=== PATIENT | female | born 1930 | race Caucasian/White ===

== ENCOUNTER 2016-10-09 22:52 | Inpatient (IN) | payer MEDICARE, OTHER ==
[~2016-10-09] VITALS: Ht 154.9 cm; Wt 105.8 kg
[~2016-10-09 22:52] MED LIST: CITA40TA4 PO; LORA-373 PO; METO25TA6 PO; OMEP20TA PO; TRAM50TA PO; ZOFR4TAB3 SL
[2016-10-09 23:04] VITALS: BP 190/82; PULSE 89; RESP 18; TEMP 100.3; O2SAT 92
[2016-10-09] MEDS ORDERED: methylPREDNISolone SOD SUCC 125 MG/2 ML VIAL IVP ONE (23:30)
[2016-10-09] MEDS ORDERED: hydrALAZINE HCL 20 MG/ML VIAL IV PUSH ONE (23:30)
[2016-10-09] MEDS ORDERED: ACETAMINOPHEN 500 MG CPLT PO ONE (23:30)
--- NOTE | 2016-10-09 23:32 | PD ---
HPI Chief Complaint: General Weakness Time Seen by Provider: 23:09 Travel History International Travel<30 days: No Contact w/Intl Traveler<30days: No Traveled to known affect area: No History of Present Illness HPI 86yo F with PMH of lung CA s/p right upper lobe resection, HTN, depression, anxiety presents to the ED with c/o generalized weakness, cough, throat pain, nasal congestion for 2 days. States she felt so weak today that she could not get up to go to the bathroom. Normally able to walk with a cane. +Tactile fever. +Wheezing. +NBNB vomiting. Denies any chest pain, sob, abdominal pain , urinary complaints. PFSH Past Medical History Arthritis: Yes Atrial Fibrillation: Yes Blood Disorders: No Anxiety: Yes Depression: Yes Heart Rhythm Problems: No Cancer: Yes (LUNG CANCER ) Cardiac Catheterization: Yes (ANGIOPLASTY) Cardiovascular Problems: Yes High Cholesterol: No Chemotherapy: No Chest Pain: No Congestive Heart Failure: No Coronary Artery Disease: Yes Diabetes: No Diminished Hearing: No Endocrine: No Gastrointestinal Disorders: No GERD: Yes Glaucoma: No Genitourinary: No Hepatitis: No Hiatal Hernia: Yes Hypertension: Yes Immune Disorder: No Implanted Vascular Access Dvce: No Medical other: No Musculoskeletal: Yes Neurologic: Yes Psychiatric: Yes Reproductive: No Respiratory: Yes Radiation Therapy: No Thyroid Disease: No Tetanus Vaccination: < 5 Years Influenza Vaccination: Yes Menopausal: Yes Past Surgical History Abdominal Surgery: Yes (CHOLECYSTECTOMY) Cardiac Surgery: No Cholecystectomy: Yes Ear Surgery: No Endocrine Surgery: No Eye Surgery: Yes (BILATERAL CATARACT) Genitourinary Surgery: No Gynecologic Surgery: Yes (HYSTERECTOMY) Hysterectomy: Yes Neurologic Surgery: Yes (LUMBAR LAMI) Oral Surgery: Yes (T&A, LOWER IMPLANTED TEETH) Pacemaker: No Thoracic Surgery: Yes (2 LOBES OF R LUNG REMOVED FROM LUNG CANCER) Tonsillectomy: Yes Other Surgery: Yes (RT LUNG BIOPSY AND RESECTION) Social History Alcohol Use: No Tobacco Use: No Substance Use: No Allergies-Medications (Allergen,Severity, Reaction): Coded Allergies: Meperidine (Verified Adverse Reaction, Severe, NAUSEA/VOMITING, 10/09/16) Pentazocine (Verified Adverse Reaction, Severe, NAUSEA/VOMITING, 10/09/16) Scopolamine (Verified Adverse Reaction, Severe, NAUSEA/VOMITING, 10/09/16) Sulfa (Verified Adverse Reaction, Severe, NAUSEA/VOMITING, 10/09/16) Trimethoprim (Verified Adverse Reaction, Severe, NAUSEA/VOMITING, 10/09/16) Talwin (Verified Adverse Reaction, Mild, NAUSEA/VOMITING, 10/09/16) Uncoded Allergies: NARCOTICS WITHOUT PHENERGAN (Adverse Reaction, Severe, NAUSEA/VOMITING, 18/04) Reported Meds & Prescriptions Reported Meds & Active Scripts Active Zofran Odt (Ondansetron Odt) 4 Mg Tab 4 Mg SL Q6HR PRN Reported Lorazepam 0.5 Mg Tab 0.5 Mg PO Q8H PRN Omeprazole 20 Mg Tab 20 Mg PO DAILY Metoprolol Succinate ER 24 HR (Metoprolol Succinate) 25 Mg Tab 25 Mg PO BID Citalopram (Citalopram Hydrobromide) 40 Mg Tab 40 Mg PO DAILY Tramadol (Tramadol HCl) 50 Mg Tab 50 Mg PO Q8H PRN Review of Systems Except as stated in HPI: all other systems reviewed are Neg Physical Exam Narrative GENERAL: 86yo F not in distress. SKIN: Warm and dry. HEAD: Atraumatic. Normocephalic. EYES: Pupils equal and round at 3mm bilaterally. No scleral icterus. No injection or drainage. ENT: No nasal bleeding or discharge. Mucous membranes pink and moist. NECK: Trachea midline. No JVD. CARDIOVASCULAR: Regular rate and rhythm. No murmur appreciated. RESPIRATORY: No accessory muscle use. Expiratory wheezing on exam bilaterally. GASTROINTESTINAL: Abdomen soft, non-tender, nondistended. No rebound tenderness or guarding. MUSCULOSKELETAL: No obvious deformities. No clubbing. No cyanosis. No edema. NEUROLOGICAL: Awake and alert. No obvious cranial nerve deficits. Motor grossly within normal limits. Normal speech. Data Data Last Documented VS Vital Signs Date Time Temp Pulse Resp B/P Pulse Ox O2 Delivery O2 Flow Rate FiO2 10/10/16 02:00 94 18 121/58 90 Room Air 10/09/16 23:52 2 10/09/16 23:04 100.3 Orders Electrocardiogram (10/09/16 ) Complete Blood Count With Diff (10/09/16 23:24) Basic Metabolic Panel (Bmp) (10/09/16 23:24) Lactic Acid Sepsis Protocol (10/09/16 23:24) Urinalysis - C+S If Indicated (10/09/16 23:24) Blood Culture (10/09/16 23:24) B-Type Natriuretic Peptide (10/09/16 23:24) Ckmb (Isoenzyme) Profile (10/09/16 23:24) Troponin I (10/09/16 23:24) Chest, Single Ap (10/09/16 23:24) Methylprednisolone So Succ Inj (Solumedr (10/09/16 23:30) Albuterol-Ipratropium Neb (Duoneb Neb) (10/09/16 23:30) Influenzae A/B Antigen (10/09/16 23:24) Acetaminophen (Tylenol) (10/09/16 23:30) Hydralazine Inj (Apresoline Inj) (10/09/16 23:30) Arterial Blood Gas (Abg) (10/09/16 ) Urine Culture (10/10/16 01:00) D-Dimer (10/10/16 01:49) Albuterol-Ipratropium Neb (Duoneb Neb) (10/10/16 02:00) Ceftriaxone Inj (Rocephin Inj) (10/10/16 02:00) Admit To Inpatient (10/10/16 ) Vital Signs (Adult) Q4H (10/10/16 02:10) Activity Oob With Assistance (10/10/16 02:10) [employer] / Telemetry .CONTINUOUS (10/10/16 02:10) Diet Heart Healthy (10/10/16 Breakfast) Sodium Chlor 0.9% 1000 Ml Inj (Ns 1000 M (10/10/16 02:10) Acetaminophen (Tylenol) (10/10/16 02:15) Ondansetron Inj (Zofran Inj) (10/10/16 02:15) Magnesium Hydroxide Liq (Milk Of Magnesi (10/10/16 02:15) Basic Metabolic Panel (Bmp) (10/10/16 06:00) Complete Blood Count With Diff (10/10/16 06:00) Resp Oxygen Efrain C Titrat 1-4 L (10/10/16 ) Pt Request For Service (10/10/16 02:10) Heparin Inj (Heparin Inj) (10/10/16 09:00) Scd Bilateral/Knee High SANGEETA.BID (10/10/16 02:10) Damon Bilateral/Knee High SANGEETA.QSHIFT (10/10/16 02:10) Naloxone Inj (Narcan Inj) (10/10/16 02:15) Inpatient Certification (10/10/16 ) Albuterol-Ipratropium Neb (Duoneb Neb) (10/10/16 08:00) Albuterol Neb (Albuterol Neb) (10/10/16 02:15) Ceftriaxone Inj (Rocephin Inj) (10/11/16 02:00) Admit Order (Ed Use Only) (10/10/16 ) ^ Saline Lock (10/10/16 02:14) Resp Oxygen Efrain C Titrat 1-4 L (10/10/16 ) ^ Notify Dr: Other (10/10/16 02:14) Sodium Chloride 0.9% Flush (Ns Flush) (10/10/16 09:00) Sodium Chloride 0.9% Flush (Ns Flush) (10/10/16 02:15) Labs Laboratory Tests Test 10/09/16 10/10/16 10/10/16 10/10/16 23:30 00:00 01:00 01:18 White Blood Count 10.1 TH/MM3 Red Blood Count 4.59 MIL/MM3 Hemoglobin 13.3 GM/DL Hematocrit 39.6 % Mean Corpuscular Volume 86.3 FL Mean Corpuscular Hemoglobin 28.9 PG Mean Corpuscular Hemoglobin 33.4 % Concent Red Cell Distribution Width 14.4 % Platelet Count 208 TH/MM3 Mean Platelet Volume 8.6 FL Neutrophils (%) (Auto) 87.0 % Lymphocytes (%) (Auto) 4.1 % Monocytes (%) (Auto) 7.7 % Eosinophils (%) (Auto) 0.1 % Basophils (%) (Auto) 1.1 % Neutrophils # (Auto) 8.8 TH/MM3 Lymphocytes # (Auto) 0.4 TH/MM3 Monocytes # (Auto) 0.8 TH/MM3 Eosinophils # (Auto) 0.0 TH/MM3 Basophils # (Auto) 0.1 TH/MM3 CBC Comment DIFF FINAL Differential Comment Sodium Level 139 MEQ/L Potassium Level 4.3 MEQ/L Chloride Level 105 MEQ/L Carbon Dioxide Level 25.2 MEQ/L Anion Gap 9 MEQ/L Blood Urea Nitrogen 19 MG/DL Creatinine 1.40 MG/DL Estimat Glomerular Filtration 36 ML/MIN Rate Random Glucose 152 MG/DL Lactic Acid Level 1.4 mmol/L Calcium Level 8.2 MG/DL Total Creatine Kinase 31 U/L Troponin I LESS THAN 0.02 NG/ML B-Type Natriuretic Peptide 290 PG/ML D-Dimer Quantitative (PE/DVT) 1.69 MG/L FEU Urine Color YELLOW Urine Turbidity MOD Urine pH 5.5 Urine Specific [place] 1.018 Urine Protein 30 mg/dL Urine Glucose (UA) NEG mg/dL Urine Ketones NEG mg/dL Urine Occult Blood SMALL Urine Nitrite POS Urine Bilirubin NEG Urine Leukocyte Esterase MOD Urine RBC 4-9 /hpf Urine WBC 9-14 /hpf Urine WBC Clumps FEW Urine Squamous Epithelial > 8 /hpf Cells Urine Amorphous Sediment MOD Urine Bacteria FEW /hpf Urine Mucus OCC /lpf Microscopic Urinalysis Comment CULTURE INDICATED Blood Gas Puncture Site RT RADIAL Blood Gas Patient Temperature 98.6 Blood Gas HCO3 22 mmol/L Blood Gas Base Excess -2.2 mmol/L Blood Gas Oxygen Saturation 90 % Arterial Blood pH 7.38 Arterial Blood Partial 39 mmHG Pressure CO2 Arterial Blood Partial 67 mmHG Pressure O2 Arterial Blood Oxygen Content 16.5 Vol % Arterial Blood 1.6 % Carboxyhemoglobin Arterial Blood Methemoglobin 1.3 % Blood Gas Hemoglobin 13.0 G/DL Blood Gas Inspired Oxygen 21 % MDM Medical Decision Making Medical Screen Exam Complete: Yes Emergency Medical Condition: Yes Interpretation(s) EKG: NSR 85bpm. LAD. Q wave III, aVF unchanged from prior. +PACs. Differential Diagnosis UTI vs. Dehydration vs. electrolyte abnormality vs. influenza vs. viral syndrome vs. pneumonia Narrative Course 86yo F with generalized weakness and URI symptoms. Pt's oxygen is 88-89% on RA and has some wheezing on exam. O2 sat is 96% on 2L NC. Although pt has no COPD , she was exposed to a lot of second hand smoke and had lung CA. Will give duonebs x3, methylprednisolone 125mg IV and obtain CXR, EKG, labs including UA. Pt is speaking in complete sentences and does not complain of any chest pain or sob. Pt is not on oxygen at home. Will sign out to next team to follow up on results and reevaluate. BP is elevated at 190/82 so hydralazine 5mg IV given. BP is now 168/79. Pt is borderline febrile at 100.3F and HR is 89-90bpm on the monitor so will also obtain blood culture, lactic acid for sepsis work up. Diagnosis Primary Impression: Sepsis Qualified Code: A41.9 - Sepsis, due to unspecified organism Admitting Information Admitting Physician Requests: Bronwyn De Luna DO Oct 09, 2016 23:32
[2016-10-09] MEDS: RESP: ALBUTEROL 2.5 MG/IPRATROPIUM 0.5 MG NEB (SCH) INH (23:40)
[2016-10-09 23:41] VITALS: O2SAT 96
[2016-10-09 23:50] LABS: AUTOMATED NEUTROPHIL # 8.8 TH/MM3 (1.8-7.7); BASOPHIL # 0.1 TH/MM3 (0-0.2); BASOPHIL % 1.1 % (0.0-2.0); EOSINOPHIL % 0.1 % (0.0-4.0); HEMATOCRIT 39.6 % (35.0-46.0); HEMO FLAGS DIFF FINAL; LYMPH % 4.1 % (9.0-44.0); LYMPHOCYTE # 0.4 TH/MM3 (1.0-4.8); MEAN CELL VOLUME 86.3 FL (80.0-100.0); MEAN CORPUSCULAR HEMOGLOBIN 28.9 PG (27.0-34.0); MEAN CORPUSCULAR HGB CONC 33.4 % (32.0-36.0); MONO % 7.7 % (0.0-8.0); PLATELET COUNT 208 TH/MM3 (150-450); RED BLOOD COUNT 4.59 MIL/MM3 (4.00-5.30); RED CELL DISTRIBUTION WIDTH 14.4 % (11.6-17.2); WHITE BLOOD COUNT 10.1 TH/MM3 (4.0-11.0)
[2016-10-09 23:52] VITALS: BP 161/75; PULSE 90; RESP 18; O2SAT 96
[2016-10-09 23:57] LABS: CHLORIDE 105 MEQ/L (98-107); POTASSIUM 4.3 MEQ/L (3.5-5.1); SODIUM (NA) 139 MEQ/L (136-145)
[2016-10-10] VITALS (15 sets, daily range): BP systolic 117–170; BP diastolic 52–104; PULSE 60–105; RESP 16–18; TEMP 95.7–98.1; O2SAT 90–98
[2016-10-10] LABS: ANION GAP 9 MEQ/L (5-15); BICARBONATE 25.2 MEQ/L (21.0-32.0)
[2016-10-10 00:01] LABS: BLOOD UREA NITROGEN 19 MG/DL (7-18)
--- NOTE | 2016-10-10 00:03 | PD ---
Physical Exam Date Seen by Provider: Oct 10, 2016 Time Seen by Provider: 00:02 Narrative accepted in transfer of care from Dr Mosley GENERAL: SKIN: Warm and dry. HEAD: Normocephalic. EYES: No scleral icterus. No injection or drainage. NECK: Supple, trachea midline. No JVD or lymphadenopathy. CARDIOVASCULAR: Regular rate and rhythm without murmurs, gallops, or rubs. RESPIRATORY: Breath sounds equal bilaterally with few expiratory wheezes, no auscultated rales. No accessory muscle use. GASTROINTESTINAL: Abdomen soft, non-tender, nondistended. MUSCULOSKELETAL: No cyanosis, or edema. BACK: Nontender without obvious deformity. No CVA tenderness. Data Data Last Documented VS Vital Signs Date Time Temp Pulse Resp B/P Pulse Ox O2 Delivery O2 Flow Rate FiO2 10/10/16 02:00 94 18 121/58 90 Room Air 10/09/16 23:52 2 10/09/16 23:04 100.3 Orders Electrocardiogram (10/09/16 ) Complete Blood Count With Diff (10/09/16 23:24) Basic Metabolic Panel (Bmp) (10/09/16 23:24) Lactic Acid Sepsis Protocol (10/09/16 23:24) Urinalysis - C+S If Indicated (10/09/16 23:24) Blood Culture (10/09/16 23:24) B-Type Natriuretic Peptide (10/09/16 23:24) Ckmb (Isoenzyme) Profile (10/09/16 23:24) Troponin I (10/09/16 23:24) Chest, Single Ap (10/09/16 23:24) Methylprednisolone So Succ Inj (Solumedr (10/09/16 23:30) Albuterol-Ipratropium Neb (Duoneb Neb) (10/09/16 23:30) Influenzae A/B Antigen (10/09/16 23:24) Acetaminophen (Tylenol) (10/09/16 23:30) Hydralazine Inj (Apresoline Inj) (10/09/16 23:30) Arterial Blood Gas (Abg) (10/09/16 ) Urine Culture (10/10/16 01:00) D-Dimer (10/10/16 01:49) Albuterol-Ipratropium Neb (Duoneb Neb) (10/10/16 02:00) Ceftriaxone Inj (Rocephin Inj) (10/10/16 02:00) Admit To Inpatient (10/10/16 ) Vital Signs (Adult) Q4H (10/10/16 02:10) Activity Oob With Assistance (10/10/16 02:10) Palletizer / Telemetry .CONTINUOUS (10/10/16 02:10) Diet Heart Healthy (10/10/16 Breakfast) Sodium Chlor 0.9% 1000 Ml Inj (Ns 1000 M (10/10/16 02:10) Acetaminophen (Tylenol) (10/10/16 02:15) Ondansetron Inj (Zofran Inj) (10/10/16 02:15) Magnesium Hydroxide Liq (Milk Of Magnesi (10/10/16 02:15) Basic Metabolic Panel (Bmp) (10/10/16 06:00) Complete Blood Count With Diff (10/10/16 06:00) Resp Oxygen Efrain C Titrat 1-4 L (10/10/16 ) Pt Request For Service (10/10/16 02:10) Heparin Inj (Heparin Inj) (10/10/16 09:00) Scd Bilateral/Knee High SANGEETA.BID (10/10/16 02:10) Damon Bilateral/Knee High SANGEETA.QSHIFT (10/10/16 02:10) Naloxone Inj (Narcan Inj) (10/10/16 02:15) Inpatient Certification (10/10/16 ) Albuterol-Ipratropium Neb (Duoneb Neb) (10/10/16 08:00) Albuterol Neb (Albuterol Neb) (10/10/16 02:15) Ceftriaxone Inj (Rocephin Inj) (10/11/16 02:00) Admit Order (Ed Use Only) (10/10/16 ) ^ Saline Lock (10/10/16 02:14) Resp Oxygen Efrain C Titrat 1-4 L (10/10/16 ) ^ Notify Dr: Other (10/10/16 02:14) Sodium Chloride 0.9% Flush (Ns Flush) (10/10/16 09:00) Sodium Chloride 0.9% Flush (Ns Flush) (10/10/16 02:15) Labs Laboratory Tests Test 10/09/16 10/10/16 10/10/16 3/14/17 23:30 00:00 01:00 01:18 White Blood Count 10.1 TH/MM3 Red Blood Count 4.59 MIL/MM3 Hemoglobin 13.3 GM/DL Hematocrit 39.6 % Mean Corpuscular Volume 86.3 FL Mean Corpuscular Hemoglobin 28.9 PG Mean Corpuscular Hemoglobin 33.4 % Concent Red Cell Distribution Width 14.4 % Platelet Count 208 TH/MM3 Mean Platelet Volume 8.6 FL Neutrophils (%) (Auto) 87.0 % Lymphocytes (%) (Auto) 4.1 % Monocytes (%) (Auto) 7.7 % Eosinophils (%) (Auto) 0.1 % Basophils (%) (Auto) 1.1 % Neutrophils # (Auto) 8.8 TH/MM3 Lymphocytes # (Auto) 0.4 TH/MM3 Monocytes # (Auto) 0.8 TH/MM3 Eosinophils # (Auto) 0.0 TH/MM3 Basophils # (Auto) 0.1 TH/MM3 CBC Comment DIFF FINAL Differential Comment Sodium Level 139 MEQ/L Potassium Level 4.3 MEQ/L Chloride Level 105 MEQ/L Carbon Dioxide Level 25.2 MEQ/L Anion Gap 9 MEQ/L Blood Urea Nitrogen 19 MG/DL Creatinine 1.40 MG/DL Estimat Glomerular Filtration 36 ML/MIN Rate Random Glucose 152 MG/DL Lactic Acid Level 1.4 mmol/L Calcium Level 8.2 MG/DL Total Creatine Kinase 31 U/L Troponin I LESS THAN 0.02 NG/ML B-Type Natriuretic Peptide 290 PG/ML D-Dimer Quantitative (PE/DVT) 1.69 MG/L FEU Urine Color YELLOW Urine Turbidity MOD Urine pH 5.5 Urine Specific [place] 1.018 Urine Protein 30 mg/dL Urine Glucose (UA) NEG mg/dL Urine Ketones NEG mg/dL Urine Occult Blood SMALL Urine Nitrite POS Urine Bilirubin NEG Urine Leukocyte Esterase MOD Urine RBC 4-9 /hpf Urine WBC 9-14 /hpf Urine WBC Clumps FEW Urine Squamous Epithelial > 8 /hpf Cells Urine Amorphous Sediment MOD Urine Bacteria FEW /hpf Urine Mucus OCC /lpf Microscopic Urinalysis Comment CULTURE INDICATED Blood Gas Puncture Site RT RADIAL Blood Gas Patient Temperature 98.6 Blood Gas HCO3 22 mmol/L Blood Gas Base Excess -2.2 mmol/L Blood Gas Oxygen Saturation 90 % Arterial Blood pH 7.38 Arterial Blood Partial 39 mmHG Pressure CO2 Arterial Blood Partial 67 mmHG Pressure O2 Arterial Blood Oxygen Content 16.5 Vol % Arterial Blood 1.6 % Carboxyhemoglobin Arterial Blood Methemoglobin 1.3 % Blood Gas Hemoglobin 13.0 G/DL Blood Gas Inspired Oxygen 21 % MDM Medical Record Reviewed: Yes Supervised Visit with CELESTINO: No Interpretation(s) CBC & BMP Diagram 10/09/16 23:30 cxr: FINDINGS: Single AP view of the chest. Lung volumes are low. Mild pulmonary vasculature indistinctness bilaterally and mild bilateral perihilar opacity suggesting mild pulmonary edema/pulmonary vascular congestion. The lungs are otherwise clear. Cardiac silhouette mildly prominent. No evidence of pleural effusion or pneumothorax. CONCLUSION: Mild pulmonary edema/pulmonary vascular congestion. Bronson Riggins MD on October 10, 2016 at 1:37 Board Certified Radiologist. This report was verified electronically. Lactic acid: 1.4, not elevated Urinalysis: Positive nitrites leukocyte Estrace white blood cells bacteria and culture is indicated @ [address] pulmonary angiogram: FINDINGS: There is no evidence for PE for technique. There is dense air space consolidation in the right lower lobe. Scarring is seen in the left apex. Large hiatal hernia is seen. CONCLUSION: Right lower lobe pneumonia. Kelsi Monaco MD on October 10, 2016 at 7:07 Board Certified Radiologist. This report was verified electronically. Differential Diagnosis accepted in transfer of care from Dr Mosley; please refer to Dr Mosley's dictation Narrative Course accepted in transfer of care from Dr Mosley; for follow up of pending labs and probable sirs/sepsis related to UTI with plan for admission Patient resting comfortably voicing no complaints after receiving updraft treatment with DuoNeb 1 Urinalysis pending; no complaint of shortness of breath nausea no vomiting no chest pain no abdominal pain and no lower extremity pain or swelling Chest x-ray resulted shows central vascular congestion mild failure/pulmonary edema no prior history of similar condition and BNP mildly elevated at 290 Patient on supplemental oxygen saturation 96% on re-evaluation with auscultation continues to have wheezing additional updraft treatment administered; in view of room air O2 saturation's of 88% previous lung cancer d- dimer ordered Patient's case discussed with on-call physician with plan to admit for generalized weakness, UTI, sirs/sepsis, dyspnea related to mild failure as well as reactive airways disease; d-dimer pending; risk for sepsis temperature upon arrival 100.3F heart rate increased to 94 sinus rhythm; however respiratory rate not elevated or depressed and no leukocytosis or leukopenia does not met sirs criteria at this time however suspect patient will met sepsis criterion during admission. Critical Care Narrative Aggregate critical care time was 40 minutes. Time to perform other separately billable procedures was not included in the critical care time. My time did not include minutes spent treating any other patients simultaneously or on activities that did not directly contribute to the patient's treatment. The services I provided to this patient were to treat and/or prevent clinically significant deterioration that could result in: respiratory failure, sepsis, I provided critical care services requiring my management, as noted below: Chart data review, documentation time, medication orders and management, vital sign assessments/reviewing monitor data, ordering and reviewing lab tests, ordering and interpreting/reviewing x-rays and diagnostic studies, care of the patient and discussion of the patient with the admitting physicians. Sepsis Criteria SIRS Criteria (2 or more): Heart rate over 90 (Then) Sepsis Criteria (SIRS+source): Infect source susp/known (uti) Physician Communication Physician Communication case discussed with and accepted by [facility] MD Dr Ramirez for admission Diagnosis Primary Impression: Dyspnea Additional Impressions: UTI (urinary tract infection) Pneumonia Admitting Information Admitting Physician Requests: Admit Pam Hull MD Oct 10, 2016 00:03
[2016-10-10 00:04] LABS: GLOMERULAR FILTRATION RATE 36 ML/MIN (>89)
[2016-10-10] MEDS: RESP: ALBUTEROL 2.5 MG/IPRATROPIUM 0.5 MG NEB (SCH) INH (00:05)
[2016-10-10 00:15] LABS: CREATINE KINASE 31 U/L (26-192)
[2016-10-10 01:18] LABS: BLOOD, URINE SMALL (NEG); GLUCOSE,URINE NEG (NEG); KETONE, URINE NEG (NEG); PH, URINE 5.5 (5.0-8.5)
[2016-10-10 01:27] LABS: BLOOD GAS BASE EXCESS -2.2 mmol/L (-2-2); BLOOD GAS CARBOXYHEMOGLOBIN 1.6 % (0-4); BLOOD GAS HCO3 22 mmol/L (22-26); BLOOD GAS METHEMOGLOBIN 1.3 % (0-2); BLOOD GAS O2 HGB SATURATION 90 % (90-100); BLOOD GAS OXYGEN CONTENT 16.5 Vol % (12.0-20.0); BLOOD GAS PCO2 39 mmHG (38-42); BLOOD GAS PO2 67 mmHG (61-120); TEMP CORR TO 98.6
[2016-10-10 01:28] LABS: CRITICAL VALUE NO; DRAW SITE RT RADIAL; FIO2 21 %; NUMBER OF ARTERIAL PUNCTURES 1; STAT NO; ULNAR PULSE Y
[2016-10-10 01:28] LABS: NITRITE,URINE POS (NEG)
[2016-10-10 01:33] LABS: URINE COLOR YELLOW (YELLW/STRAW)
[2016-10-10 01:34] LABS: BACTERIA, URINE FEW /hpf; SQUAMOUS EPITHELIAL CELL URINE > 8 /hpf (0-5)
[2016-10-10 01:36] LABS: COMMENT (UR) CULTURE INDICATED; CULTURE IF INDICATED CULTURE INDICATED; MUCUS URINE OCC /lpf (OCC)
--- NOTE | 2016-10-10 01:39 | RADHPO ---
EXAM DATE/TIME: 10/10/2016 00:09 [facility] COMPARISON: CHEST SINGLE AP, July 14, 2012, 15:21. INDICATIONS : Short of breath. MEDICAL HISTORY : Hypertension. SURGICAL HISTORY : Lobectomy. ENCOUNTER: Initial ACUITY: 1 day PAIN SCORE: 7/10 LOCATION: Bilateral chest FINDINGS: Single AP view of the chest. Lung volumes are low. Mild pulmonary vasculature indistinctness bilatera lly and mild bilateral perihilar opacity suggesting mild pulmonary edema/pulmonary vascular congestio n. The lungs are otherwise clear. Cardiac silhouette mildly prominent. No evidence of pleural effusio n or pneumothorax. CONCLUSION: Mild pulmonary edema/pulmonary vascular congestion. Bronson Riggins MD on October 10, 2016 at 1:37 Board Certified Radiologist. This report was verified electronically.
[2016-10-10] MEDS ORDERED: RESP: ALBUTEROL 2.5 MG/IPRATROPIUM 0.5 MG NEB (SCH) NEB ONE (02:00)
[2016-10-10] MEDS ORDERED: cefTRIAXone INJ 1,000 MG in SODIUM CHLORIDE 0.9% INJ 100 ML IV ONE (02:00)
[2016-10-10] MEDS ORDERED: NALOXONE HCL 0.4 MG/ML AMP IV PRN (02:15)
[2016-10-10] MEDS ORDERED: MAGNESIUM HYDROXIDE SUSP 30 ML CUP PO PRN (02:15)
[2016-10-10] MEDS: SODIUM CHLOR 0.9% 1000 ML INJ 1,000 ML IV SCH (02:58)
[2016-10-10] MEDS ORDERED: IODIXANOL 320 MG/ML 10 ML VIAL (for Rad CT) IV ONE (07:00)
[2016-10-10 07:05] LABS: AUTOMATED NEUTROPHIL # 6.7 TH/MM3 (1.8-7.7); BASOPHIL # 0.1 TH/MM3 (0-0.2); BASOPHIL % 0.8 % (0.0-2.0); HEMATOCRIT 38.8 % (35.0-46.0); HEMO FLAGS DIFF FINAL; LYMPH % 3.5 % (9.0-44.0); LYMPHOCYTE # 0.2 TH/MM3 (1.0-4.8); MEAN CELL VOLUME 87.4 FL (80.0-100.0); MEAN CORPUSCULAR HEMOGLOBIN 28.9 PG (27.0-34.0); MONO % 0.9 % (0.0-8.0); NEUT % 94.8 % (16.0-70.0); PLATELET COUNT 207 TH/MM3 (150-450); RED BLOOD COUNT 4.44 MIL/MM3 (4.00-5.30); RED CELL DISTRIBUTION WIDTH 14.3 % (11.6-17.2); WHITE BLOOD COUNT 7.1 TH/MM3 (4.0-11.0)
--- NOTE | 2016-10-10 07:12 | RADHPO ---
EXAM DATE/TIME: 10/10/2016 06:30 [facility] COMPARISON: CHEST SINGLE AP, October 10, 2016, 0:09. INDICATIONS : Evaluate for embolism. Shortness of breath. Weakness. IV CONTRAST: 50 cc Visipaque (iodixanol) IV RADIATION DOSE: 18.52 CTDIvol (mGy) MEDICAL HISTORY : Carcinoma, lung. Hypertension. Hernia, hiatal. SURGICAL HISTORY : Cholecystectomy. Lobectomy. ENCOUNTER: Initial ACUITY: 1 day PAIN SCALE: 0/10 LOCATION: chest TECHNIQUE: Volumetric scanning of the chest was performed using a pulmonary embolism protocol MIP images were re constructed. Using automated exposure control and adjustment of the mA and/or kV according to patien t size, radiation dose was kept as low as reasonably achievable to obtain optimal diagnostic quality images. FINDINGS: There is no evidence for PE for technique. There is dense air space consolidation in the right l ower lobe. Scarring is seen in the left apex. Large hiatal hernia is seen. CONCLUSION: Right lower lobe pneumonia. Kelsi Monaco MD on October 10, 2016 at 7:07 Board Certified Radiologist. This report was verified electronically.
[2016-10-10 07:14] LABS: POTASSIUM 3.9 MEQ/L (3.5-5.1)
[2016-10-10 07:17] LABS: BICARBONATE 22.2 MEQ/L (21.0-32.0)
[2016-10-10] MEDS ORDERED: DOXYCYCLINE INJ 100 MG in SODIUM CHLORIDE 0.9% INJ 100 ML IV ONE (07:30)
[2016-10-10] MEDS ORDERED: FUROSEMIDE 20 MG/2 ML VIAL IV PUSH ONE (07:30)
[2016-10-10] MEDS: RESP: ALBUTEROL 2.5 MG/IPRATROPIUM 0.5 MG NEB (SCH) NEB ×4 (08:03→19:33)
[2016-10-10] MEDS: HEPARIN SODIUM - SQ 10,000 UNITS/ML VIAL SQ SCH ×2 (09:23→20:01)
[2016-10-10] MEDS: SODIUM CHLORIDE 0.9% FLUSH 5 ML FLUSH IVF SCH ×2 (09:23→20:01)
[2016-10-10] MEDS ORDERED: AZITHROMYCIN INJ 500 MG in SODIUM CHLOR 0.9% 250 ML INJ 250 ML IV SCH (10:00)
--- NOTE | 2016-10-10 10:20 | HHI.HP ---
[facility] Primary Care Physician Massiel Jenkins MD Admission Diagnosis UTI; dyspnea; mild chf Diagnoses: (1) UTI (urinary tract infection) (2) Pneumonia (3) Accelerated hypertension (4) Dyspnea Chief Complaint: Shortness of breath, Fever, generalized malaise Travel History International Travel<30 Days: No Contact w/Intl Traveler <30 Da: No Traveled to Known Affected Are: No Sepsis Criteria SIRS Criteria (2 or more): Temp > 100.9 or < 96.8 History of Present Illness 86yo F with PMH of lung CA s/p right upper lobe resection, hypertension was brought to the ED yesterday for evaluation of worsening symptoms of nonproductive cough, febrile episode, wheezing shortness of breath 2 day duration without any associated chest pain. Patient denies any dysuria or urinary frequency despite abnormal UA. Chest x-ray was positive for right lower lobe consolidation. She also reported significant increase weakness on the day of admission . There was no GI bleed, hematuria or hemoptysis. Review of Systems Other 12 systems reviewed and negative except for the one mentioned in the history of present illness Past Family Social History Past Medical History Arthritis Atrial fibrillation Anxiety Depression History of right-sided lung cancer Coronary artery disease GERD Hypertension Past Surgical History Lumbar laminectomy Laparoscopic cholecystectomy Right lobectomy for lung cancer Tonsillectomy Vaginal hysterectomy Bilateral cataract excision with intraocular lens implants Right carpal tunnel release Reported Medications Zofran Odt (Ondansetron Odt) 4 Mg Tab 4 Mg SL Q6HR PRN Reported Lorazepam 0.5 Mg Tab 0.5 Mg PO Q8H PRN Omeprazole 20 Mg Tab 20 Mg PO DAILY Metoprolol Succinate ER 24 HR (Metoprolol Succinate) 25 Mg Tab 25 Mg PO BID Citalopram (Citalopram Hydrobromide) 40 Mg Tab 40 Mg PO DAILY Tramadol (Tramadol HCl) 50 Mg Tab 50 Mg PO Q8H PRN Allergies: Coded Allergies: Meperidine (Verified Adverse Reaction, Severe, NAUSEA/VOMITING, 10/09/16) Pentazocine (Verified Adverse Reaction, Severe, NAUSEA/VOMITING, 10/09/16) Scopolamine (Verified Adverse Reaction, Severe, NAUSEA/VOMITING, 10/09/16) Sulfa (Verified Adverse Reaction, Severe, NAUSEA/VOMITING, 10/09/16) Trimethoprim (Verified Adverse Reaction, Severe, NAUSEA/VOMITING, 10/09/16) Talwin (Verified Adverse Reaction, Mild, NAUSEA/VOMITING, 10/09/16) Uncoded Allergies: NARCOTICS WITHOUT PHENERGAN (Adverse Reaction, Severe, NAUSEA/VOMITING, 18/04) Family History No family history of diabetes, hypertension Social History Alcohol Use: No Tobacco Use: No Substance Use: No Physical Exam Vital Signs Vital Signs Date Time Temp Pulse Resp B/P Pulse Ox O2 Delivery O2 Flow Rate FiO2 10/10/16 08:25 95.7 89 18 170/104 96 10/10/16 07:00 86 16 145/68 95 Room Air 10/10/16 07:00 86 16 95 Room Air 10/10/16 06:27 88 18 135/60 94 Nasal Cannula 2 10/10/16 05:43 92 18 118/56 94 Nasal Cannula 2 10/10/16 04:30 94 18 117/52 95 Nasal Cannula 2 10/10/16 03:14 93 18 128/66 95 Nasal Cannula 2 10/10/16 02:00 94 18 121/58 90 Room Air 10/10/16 01:14 94 18 136/64 95 Room Air 10/09/16 23:52 90 18 161/75 96 Nasal Cannula 2 10/09/16 23:41 96 Nasal Cannula 2.00 10/09/16 23:10 89 18 96 Nasal Cannula 2 10/09/16 23:04 100.3 89 18 190/82 92 Physical Exam GENERAL: This is a well-nourished, well-developed patient, in no apparent distress. SKIN: No rashes, ecchymoses or lesions. Cool and dry. HEAD: Atraumatic. Normocephalic. No temporal or scalp tenderness. EYES: Pupils equal round and reactive. Extraocular motions intact. No scleral icterus. No injection or drainage. ENT: Nose without bleeding, purulent drainage or septal hematoma. Throat without erythema, tonsillar hypertrophy or exudate. Uvula midline. Airway patent. NECK: Trachea midline. No JVD or lymphadenopathy. Supple, nontender, no meningeal signs. CARDIOVASCULAR: Regular rate and rhythm without murmurs, gallops, or rubs. RESPIRATORY: Clear to auscultation. Breath sounds equal bilaterally. No wheezes , rales, or rhonchi. GASTROINTESTINAL: Abdomen soft, non-tender, nondistended. No hepato-splenomegaly , or palpable masses. No guarding. MUSCULOSKELETAL: Extremities without clubbing, cyanosis, or edema. No joint tenderness, effusion, or edema noted. No calf tenderness. Negative Homans sign bilaterally. NEUROLOGICAL: Awake and alert. Cranial nerves II through XII intact. Motor and sensory grossly within normal limits. Five out of 5 muscle strength in all muscle groups. Normal speech. Laboratory Laboratory Tests Test 10/09/16 10/10/16 10/10/16 10/10/16 23:30 00:00 01:00 01:18 White Blood Count 10.1 Red Blood Count 4.59 Hemoglobin 13.3 Hematocrit 39.6 Mean Corpuscular Volume 86.3 Mean Corpuscular Hemoglobin 28.9 Mean Corpuscular Hemoglobin 33.4 Concent Red Cell Distribution Width 14.4 Platelet Count 208 Mean Platelet Volume 8.6 Neutrophils (%) (Auto) 87.0 Lymphocytes (%) (Auto) 4.1 Monocytes (%) (Auto) 7.7 Eosinophils (%) (Auto) 0.1 Basophils (%) (Auto) 1.1 Neutrophils # (Auto) 8.8 Lymphocytes # (Auto) 0.4 Monocytes # (Auto) 0.8 Eosinophils # (Auto) 0.0 Basophils # (Auto) 0.1 CBC Comment DIFF FINAL Differential Comment Sodium Level 139 Potassium Level 4.3 Chloride Level 105 Carbon Dioxide Level 25.2 Anion Gap 9 Blood Urea Nitrogen 19 Creatinine 1.40 Estimat Glomerular Filtration 36 Rate Random Glucose 152 Lactic Acid Level 1.4 Calcium Level 8.2 Total Creatine Kinase 31 Troponin I LESS THAN 0.02 B-Type Natriuretic Peptide 290 D-Dimer Quantitative (PE/DVT) 1.69 Urine Color YELLOW Urine Turbidity MOD Urine pH 5.5 Urine Specific [place] 1.018 Urine Protein 30 Urine Glucose (UA) NEG Urine Ketones NEG Urine Occult Blood SMALL Urine Nitrite POS Urine Bilirubin NEG Urine Leukocyte Esterase MOD Urine RBC 4-9 Urine WBC 9-14 Urine WBC [place] FEW Urine Squamous Epithelial > 8 Cells Urine Amorphous Sediment MOD Urine Bacteria FEW Urine Mucus OCC Microscopic Urinalysis Comment CULTURE INDICATED Blood Gas Puncture Site RT RADIAL Blood Gas Patient Temperature 98.6 Blood Gas HCO3 22 Blood Gas Base Excess -2.2 Blood Gas Oxygen Saturation 90 Arterial Blood pH 7.38 Arterial Blood Partial 39 Pressure CO2 Arterial Blood Partial 67 Pressure O2 Arterial Blood Oxygen Content 16.5 Arterial Blood 1.6 Carboxyhemoglobin Arterial Blood Methemoglobin 1.3 Blood Gas Hemoglobin 13.0 Blood Gas Inspired Oxygen 21 Test 10/10/16 06:50 White Blood Count 7.1 Red Blood Count 4.44 Hemoglobin 12.8 Hematocrit 38.8 Mean Corpuscular Volume 87.4 Mean Corpuscular Hemoglobin 28.9 Mean Corpuscular Hemoglobin 33.0 Concent Red Cell Distribution Width 14.3 Platelet Count 207 Mean Platelet Volume 8.7 Neutrophils (%) (Auto) 94.8 Lymphocytes (%) (Auto) 3.5 Monocytes (%) (Auto) 0.9 Eosinophils (%) (Auto) 0.0 Basophils (%) (Auto) 0.8 Neutrophils # (Auto) 6.7 Lymphocytes # (Auto) 0.2 Monocytes # (Auto) 0.1 Eosinophils # (Auto) 0.0 Basophils # (Auto) 0.1 CBC Comment DIFF FINAL Differential Comment Sodium Level 138 Potassium Level 3.9 Chloride Level 103 Carbon Dioxide Level 22.2 Anion Gap 13 Blood Urea Nitrogen 21 Creatinine 1.70 Estimat Glomerular Filtration 28 Rate Random Glucose 216 Calcium Level 8.0 Date/Time Procedure Status Source Growth 10/10/16 01:00 Urine Culture Received Urine Clean Catch Pending 10/09/16 23:35 Aerobic Blood Culture Received Blood Peripheral Pending 10/09/16 23:35 Anaerobic Blood Culture Received Blood Peripheral Pending 10/09/16 23:30 Influenza Types A,B Antigen (GOOD) - Final Complete Nasal Aspirate NEGATIVE FOR FLU A AND B ANTIGEN.... Result Diagram: 10/10/16 0650 10/10/16 0650 Assessment and Plan Problem List: (1) UTI (urinary tract infection) ICD Code: N39.0 Status: Acute (2) Pneumonia ICD Code: J18.9 Status: Acute (3) Accelerated hypertension ICD Code: I10 Status: Acute (4) Dyspnea ICD Code: R06.00 Status: Acute Assessment and Plan 86-year-old female with Community-acquired pneumonia: Chest x-ray noted and reviewed with finding of right left lobe consolidation, currently on Rocephin and will add azithromycin IV 500 mg daily. Keep oxygen saturation above 92% and continue with DuoNeb when necessary Dyspnea: Chest x-ray noted and reviewed with finding of right lower lung consolidation however without any pulmonary conditions. Treat for pneumonia and add DuoNeb when necessary and maintain oxygen saturation above 92% UTI: On Rocephin pending urine culture Accelerated hypertension: Resume patient Lopressor and add hydralazine when necessary Anxiety/depression: Resume outpatient medication Leukocytosis: Secondary to treatment with Solu-Medrol IV 1 in ED, continue to monitor DVT prophylaxis: Bilateral SCDs Code Status Full code Discussed Condition With Patient Physician Certification 2 Midnight Certification Type: Admission for Inpatient Services Order for Inpatient Services The services are ordered in accordance with Medicare regulations or non- Medicare payer requirements, as applicable. In the case of services not specified as inpatient-only, they are appropriately provided as inpatient services in accordance with the 2-midnight benchmark. Estimated LOS (days): 2 days is the estimated time the patient will need to remain in the hospital, assuming treatment plan goals are met and no additional complications. Post-Hospital Plan: Not yet determined Alex Zamarripa MD Oct 10, 2016 10:20
[2016-10-10] MEDS: LORazepam 0.5 MG TAB PO PRN ×2 (11:30→20:07)
[2016-10-10] MEDS: METOPROLOL SUCCINATE 25 MG EXTENDED RELEASE TAB PO SCH ×2 (12:55→20:00)
[2016-10-10] MEDS: CITALOPRAM HYDROBROMIDE 40 MG TAB PO SCH (13:00)
[2016-10-10] MEDS: ONDANSETRON HCL 4 MG/2 ML VIAL IVP PRN ×2 (13:04→22:20)
[2016-10-10] MEDS: ACETAMINOPHEN 325 MG TAB PO PRN (22:19)
[2016-10-11] VITALS (8 sets, daily range): BP systolic 137–207; BP diastolic 67–84; PULSE 22–101; RESP 15–22; TEMP 96.3–100.7; O2SAT 94–98
[2016-10-11] MEDS: cefTRIAXone INJ 1,000 MG in SODIUM CHLORIDE 0.9% INJ 100 ML IV SCH (02:59)
[2016-10-11] MEDS: SODIUM CHLOR 0.9% 1000 ML INJ 1,000 ML IV SCH ×2 (03:06→12:27)
[2016-10-11] MEDS: RESP: ALBUTEROL 2.5 MG/IPRATROPIUM 0.5 MG NEB (SCH) NEB ×4 (07:30→19:39)
[2016-10-11] MEDS: SODIUM CHLORIDE 0.9% FLUSH 5 ML FLUSH IVF SCH ×2 (08:23→20:47)
[2016-10-11] MEDS: METOPROLOL SUCCINATE 25 MG EXTENDED RELEASE TAB PO SCH ×2 (08:23→20:47)
[2016-10-11] MEDS: CITALOPRAM HYDROBROMIDE 40 MG TAB PO SCH (08:23)
[2016-10-11] MEDS: PANTOPRAZOLE SOD 20 MG DELAYED RELEASE TAB PO SCH (08:23)
[2016-10-11] MEDS: LORazepam 0.5 MG TAB PO PRN ×2 (08:23→20:46)
[2016-10-11] MEDS: HEPARIN SODIUM - SQ 10,000 UNITS/ML VIAL SQ SCH ×2 (08:23→20:45)
[2016-10-11] MEDS ORDERED: CITALOPRAM HYDROBROMIDE 40 MG TAB PO SCH (09:00)
[2016-10-11] MEDS: AZITHROMYCIN 250 MG TAB PO SCH (12:26)
[2016-10-11] MEDS: ACETAMINOPHEN 325 MG TAB PO PRN ×2 (12:26→20:46)
--- NOTE | 2016-10-11 20:36 | EKG ---
Date Performed: 10/09/2016 Time Performed: 23:45:18 PTAGE: 86 years EKG: Sinus rhythm with PAC(s) Borderline ECG PREVIOUS TRACING : 10/14/2014 11.27 Compared to prior tracing no significant change DOCTOR: Tom Paez Interpretating Date/Time 10/11/2016 20:35:50
[2016-10-11] MEDS: SENNOSIDES 8.6 MG TAB PO PRN (20:46)
[2016-10-11] MEDS: hydrALAZINE HCL 25 MG TAB PO PRN (20:47)
[2016-10-12] VITALS (8 sets, daily range): BP systolic 146–192; BP diastolic 70–96; PULSE 89–101; RESP 18–22; TEMP 98.5–99.9; O2SAT 92–96
[2016-10-12] MEDS: cefTRIAXone INJ 1,000 MG in SODIUM CHLORIDE 0.9% INJ 100 ML IV SCH (02:26)
[2016-10-12] MEDS: SODIUM CHLOR 0.9% 1000 ML INJ 1,000 ML IV SCH (02:26)
[2016-10-12] MEDS: ACETAMINOPHEN 325 MG TAB PO PRN ×2 (04:46→13:36)
[2016-10-12] MEDS: LORazepam 0.5 MG TAB PO PRN ×2 (04:46→21:30)
[2016-10-12] MEDS: ONDANSETRON HCL 4 MG/2 ML VIAL IVP PRN ×2 (04:47→12:45)
[2016-10-12] MEDS: RESP: ALBUTEROL 2.5 MG/IPRATROPIUM 0.5 MG NEB (SCH) NEB ×4 (07:40→20:12)
[2016-10-12] MEDS: PANTOPRAZOLE SOD 20 MG DELAYED RELEASE TAB PO SCH (08:44)
[2016-10-12] MEDS: METOPROLOL SUCCINATE 25 MG EXTENDED RELEASE TAB PO SCH ×2 (08:44→21:19)
[2016-10-12] MEDS: CITALOPRAM HYDROBROMIDE 40 MG TAB PO SCH (08:44)
[2016-10-12] MEDS: HEPARIN SODIUM - SQ 10,000 UNITS/ML VIAL SQ SCH ×2 (08:45→21:18)
[2016-10-12] MEDS: SODIUM CHLORIDE 0.9% FLUSH 5 ML FLUSH IVF SCH ×2 (08:46→21:18)
[2016-10-12] MEDS: AZITHROMYCIN 250 MG TAB PO SCH (09:01)
--- NOTE | 2016-10-12 11:58 | HHI.PR ---
Subjective Remarks This is a delayed entry note patient was seen 10/11/16 at 10 AM Follow-up community acquired pneumonia Patient had no complaint of chest pain or shortness of breath. She was seen in the chair and vitals stable at the time. She tolerated by mouth without any complication nausea and vomiting. Objective Vitals Vital Signs Date Time Temp Pulse Resp B/P Pulse Ox O2 Delivery O2 Flow Rate FiO2 10/12/16 07:41 96 21 10/12/16 04:59 98.5 89 22 182/87 93 10/12/16 00:00 99.2 94 20 149/70 95 10/11/16 20:35 100.7 22 22 207/72 95 10/11/16 19:40 94 21 10/11/16 18:23 97.9 101 16 137/67 95 10/11/16 13:26 20 10/11/16 13:23 97.6 97 15 146/73 96 I/O 10/11/16 10/11/16 10/11/16 10/12/16 10/12/16 10/12/16 07:00 15:00 23:00 07:00 15:00 23:00 Intake Total 400 ml 960 ml 1320 ml Output Total 300 ml Balance 100 ml 960 ml 1320 ml Intake Oral 960 ml 120 ml IV Total 400 ml 1200 ml Output Urine Total 300 ml # Voids 2 5 # Bowel Movements 0 0 Result Diagram: 10/10/16 0650 10/10/16 [address] Angiography 10/10/16 0000 Signed Impressions: Service Date/Time: Monday, October 10, 2016 06:30 - CONCLUSION: Right lower lobe pneumonia. KIsabel Monaco MD Chest X-Ray 10/09/16 2289 Signed Impressions: Service Date/Time: Monday, October 10, 2016 00:09 - CONCLUSION: Mild pulmonary edema/pulmonary vascular congestion. Bronson Riggins MD Objective Remarks GENERAL: NAD SKIN: Warm and dry. HEAD: Normocephalic. EYES: No scleral icterus. No injection or drainage. NECK: Supple, trachea midline. No JVD or lymphadenopathy. CARDIOVASCULAR: Regular rate and rhythm without murmurs, gallops, or rubs. RESPIRATORY: Breath sounds equal bilaterally. No accessory muscle use. GASTROINTESTINAL: Abdomen soft, non-tender, nondistended. MUSCULOSKELETAL: No cyanosis, or edema. BACK: Nontender without obvious deformity. No CVA tenderness. A/P Problem List: (1) UTI (urinary tract infection) ICD Code: N39.0 Status: Acute (2) Pneumonia ICD Code: J18.9 Status: Acute (3) Accelerated hypertension ICD Code: I10 Status: Acute (4) Dyspnea ICD Code: R06.00 Status: Acute Assessment and Plan 86-year-old female with Community-acquired pneumonia: CTA with finding of right left lobe consolidation , continue Rocephin and azithromycin . Keep oxygen saturation above 92% and continue with DuoNeb when necessary Dyspnea: Chest x-ray noted and reviewed with finding of right lower lung consolidation however without any pulmonary conditions. Treat for pneumonia and continue DuoNeb when necessary and maintain oxygen saturation above 92% UTI: Continue Rocephin pending urine culture Accelerated hypertension: Resolved and continue Lopressor and hydralazine when necessary ARF: Continue with gentle IV fluid hydration and monitor BUN and creatinine Anxiety/depression: Continue outpatient medication Leukocytosis: Resolved DVT prophylaxis: Bilateral SCDs Alex Zamarripa MD Oct 12, 2016 11:58
[2016-10-12] MEDS ORDERED: cloNIDine HCL 0.1 MG TAB PO PRN (12:00)
[2016-10-12] MEDS ORDERED: PILL SPLITTER OTHER PRN (12:15)
[2016-10-12] MEDS: amLODIPine BESYLATE 5 MG TAB PO SCH (12:39)
[2016-10-12] MEDS: SENNOSIDES 8.6 MG TAB PO PRN (13:39)
[2016-10-12] MEDS: hydrALAZINE HCL 25 MG TAB PO PRN (17:27)
--- NOTE | 2016-10-12 19:30 | HHI.PR ---
Subjective Remarks Pleasant 86 years old female laying down in bed, she tells me she still coughing , she is a little bit hard of hearing, in general feels a little better I discussed with the daughter at the bedside she asked if her mom has congestive heart failure, stated her mother has been having on and off leg swelling, her BNP is 290 Objective Vitals Vital Signs Date Time Temp Pulse Resp B/P Pulse Ox O2 Delivery O2 Flow Rate FiO2 10/12/16 07:41 96 21 10/12/16 04:59 98.5 89 22 182/87 93 10/12/16 00:00 99.2 94 20 149/70 95 10/11/16 20:35 100.7 22 22 207/72 95 10/11/16 19:40 94 21 I/O 10/11/16 10/11/16 10/11/16 10/12/16 10/12/16 10/12/16 07:00 15:00 23:00 07:00 15:00 23:00 Intake Total 400 ml 960 ml 1320 ml Output Total 300 ml Balance 100 ml 960 ml 1320 ml Intake Oral 960 ml 120 ml IV Total 400 ml 1200 ml Output Urine Total 300 ml # Voids 2 5 # Bowel Movements 0 0 Result Diagram: 10/10/16 0650 10/10/16 0650 Objective Remarks GENERAL: This is a pleasant 86 years old elderly female, well-developed patient , in no apparent distress. SKIN: No rashes, warm and dry HEAD: Atraumatic. Normocephalic. EYES: Pupils equal round and reactive. Extraocular motions intact. No scleral icterus. ENT: Nose without bleeding, or drainage, Airway patent. NECK: Trachea midline. Supple CARDIOVASCULAR: Regular rate and rhythm without murmurs, gallops, or rubs. RESPIRATORY: Diminished breath sounds bibasilar No wheezes, rales, or rhonchi. GASTROINTESTINAL: Abdomen soft, non-tender, nondistended. Positive bowel sounds MUSCULOSKELETAL: Extremities without clubbing, cyanosis, or edema. Pedal pulses appreciated NEUROLOGICAL: Awake and alert. Moves all extremity. Normal speech.no focal neurological deficit A/P Problem List: (1) UTI (urinary tract infection) ICD Code: N39.0 Status: Acute (2) Pneumonia ICD Code: J18.9 Status: Acute (3) Accelerated hypertension ICD Code: I10 Status: Acute (4) Dyspnea ICD Code: R06.00 Status: Acute Assessment and Plan 10/12/16: Discussed with the patient and the daughter, continue antibiotic Rocephin and Zithromax,. due to increased BNP and history of leg swelling on and off by the daughter will check for underlying CHF with 2-D echo 86-year-old female with RLL Community-acquired pneumonia: CTA with finding of RLL consolidation, continue Rocephin and azithromycin . Keep oxygen saturation above 92% and continue with DuoNeb when necessary Dyspnea: Chest x-ray noted and reviewed with finding of right lower lung consolidation however without any pulmonary congestion. Treat for pneumonia and continue DuoNeb when necessary and maintain oxygen saturation above 92% Due to increase BNP and history of occasional leg swelling 2-D echo checked UTI: Continue Rocephin pending urine culture Accelerated hypertension: Still not optimized added Norvasc and clonidine, lisinopril and if creatinine improved and continue Lopressor and hydralazine when necessary Mild ROLF on CKD: Creatinine baseline around 1.5, it's 1.7 now, Continue with gentle IV fluid hydration and monitor BUN and creatinine Anxiety/depression: Continue outpatient medication Leukocytosis: Resolved DVT prophylaxis: Bilateral SCDs Florence White MD Oct 12, 2016 19:30
[2016-10-12] MEDS: traMADol HCL 50 MG TAB PO PRN (21:29)
[2016-10-13] VITALS (9 sets, daily range): BP systolic 101–181; BP diastolic 54–96; PULSE 72–101; RESP 16–20; TEMP 96.3–99.1; O2SAT 92–96
[2016-10-13] MEDS: cefTRIAXone INJ 1,000 MG in SODIUM CHLORIDE 0.9% INJ 100 ML IV SCH (01:43)
[2016-10-13] MEDS: SODIUM CHLORIDE 0.9% FLUSH 5 ML FLUSH IVF PRN (01:43)
[2016-10-13] MEDS: hydrALAZINE HCL 25 MG TAB PO PRN (05:41)
[2016-10-13] MEDS: RESP: ALBUTEROL 2.5 MG/3 ML NEB (PRN) NEB (05:49)
[2016-10-13] MEDS: RESP: ALBUTEROL 2.5 MG/IPRATROPIUM 0.5 MG NEB (SCH) NEB ×4 (07:46→19:52)
[2016-10-13 07:57] LABS: AUTOMATED NEUTROPHIL # 6.1 TH/MM3 (1.8-7.7); BASOPHIL # 0.2 TH/MM3 (0-0.2); BASOPHIL % 2.6 % (0.0-2.0); EOSINOPHIL % 0.2 % (0.0-4.0); HEMATOCRIT 34.8 % (35.0-46.0); HEMO FLAGS DIFF FINAL; LYMPH % 13.4 % (9.0-44.0); LYMPHOCYTE # 1.1 TH/MM3 (1.0-4.8); MEAN CORPUSCULAR HGB CONC 32.2 % (32.0-36.0); MONO % 11.5 % (0.0-8.0); NEUT % 72.3 % (16.0-70.0); PLATELET COUNT 214 TH/MM3 (150-450); RED CELL DISTRIBUTION WIDTH 14.3 % (11.6-17.2); WHITE BLOOD COUNT 8.4 TH/MM3 (4.0-11.0)
[2016-10-13 08:07] LABS: BICARBONATE 26.6 MEQ/L (21.0-32.0)
[2016-10-13] MEDS: CITALOPRAM HYDROBROMIDE 40 MG TAB PO SCH (08:19)
[2016-10-13] MEDS: METOPROLOL SUCCINATE 25 MG EXTENDED RELEASE TAB PO SCH ×2 (08:21→21:39)
[2016-10-13] MEDS: amLODIPine BESYLATE 5 MG TAB PO SCH (08:21)
[2016-10-13] MEDS: AZITHROMYCIN 250 MG TAB PO SCH (08:22)
[2016-10-13] MEDS: HEPARIN SODIUM - SQ 10,000 UNITS/ML VIAL SQ SCH ×2 (08:24→21:40)
[2016-10-13] MEDS: SODIUM CHLORIDE 0.9% FLUSH 5 ML FLUSH IVF SCH ×2 (08:25→21:39)
[2016-10-13] MEDS: LISINOPRIL 5 MG TAB PO SCH (08:25)
[2016-10-13] MEDS: PANTOPRAZOLE SOD 20 MG DELAYED RELEASE TAB PO SCH (08:25)
[2016-10-13] MEDS: ACETAMINOPHEN 325 MG TAB PO PRN (09:15)
[2016-10-13] MEDS: LORazepam 0.5 MG TAB PO PRN ×2 (09:17→21:39)
--- NOTE | 2016-10-13 11:47 | EC ---
Study Study Date:10/13/2016 STUDY CONCLUSIONS SUMMARY - Procedure narrative: Transthoracic echocardiography. Image quality was poor. Scanning was performed from the parasternal, apical, and subcostal acoustic windows. - Left ventricle: The cavity size was normal. Wall thickness was normal. Systolic function was normal. The estimated ejection fraction was in the range of 50% to 55%. Wall motion was normal; there were no regional wall motion abnormalities. - Mitral valve: Valve area by pressure half-time: 2.22cm^2. - Pulmonary arteries: PA peak pressure: 56mm Hg (S). If LV function is below 40, please consider prescribing an ACEI or ARB or document rationale for non-use. PROCEDURE DATA STUDY STATUS: Elective. Procedure: Transthoracic echocardiography. Image quality was poor. Scanning was performed from the parasternal, apical, and subcostal acoustic windows. Study completion: The patient tolerated the procedure well. Transthoracic echocardiography. M-mode, complete 2D, complete spectral Doppler, and color Doppler. Patient status: Inpatient. CARDIAC ANATOMY LEFT VENTRICLE: The cavity size was normal. Wall thickness was normal. Systolic function was normal. The estimated ejection fraction was in the range of 50% to 55%. Wall motion was normal; there were no regional wall motion abnormalities. AORTIC VALVE: Trileaflet; normal thickness leaflets. Doppler: Transvalvular velocity was within the normal range. There was no stenosis. No regurgitation. AORTA: Aortic root: The aortic root was normal in size. MITRAL VALVE: Structurally normal valve. Doppler: Transvalvular velocity was within the normal range. There was no evidence for stenosis. No regurgitation. Valve area by pressure half-time: 2.22cm^2. Peak gradient: 3mm Hg (D). LEFT ATRIUM: The atrium was normal in size. RIGHT VENTRICLE: The cavity size was normal. Wall thickness was normal. PULMONIC VALVE: Doppler: Transvalvular velocity was within the normal range. There was no evidence for stenosis. No regurgitation. TRICUSPID VALVE: Structurally normal valve. Doppler: Transvalvular velocity was within the normal range. No regurgitation. PULMONARY ARTERY: The main pulmonary artery was normal-sized. Systolic pressure was within the normal range. RIGHT ATRIUM: The atrium was normal in size. PERICARDIUM: There was no pericardial effusion. SYSTEMIC VEINS: Inferior vena cava: The vessel was normal in size. BASIC MEASUREMENTS ADULT Normal Left ventricle LV internal dimension, ED, chordal level, 47.5 mm 43-52 PLAX LV internal dimension, ES, chordal level, 35 mm 23-38 PLAX Fractional shortening, chordal level, PLAX *26 % >29 LV posterior wall thickness, ED 12.7 mm IVS/LVPW ratio, ED 0.94 <1.3 Ventricular septum Septal thickness, ED 11.9 mm Aortic valve Leaflet separation 15 mm 15-26 Right ventricle RV internal dimension, ED, PLAX *18.2 mm 19-38 BASIC MEASUREMENTS ADULT Normal Aortic valve Leaflet separation 15 mm 15-26 Aorta Root diameter, ED 32 mm 20-37 Left atrium Anterior-posterior dimension, ES 29 mm 19-40 LA/aortic root ratio 0.91 DOPPLER MEASUREMENTS ADULT Normal Main pulmonary artery Pressure, S *56 mm Hg =30 Mitral valve Peak E-wave velocity 89.3 cm/s Peak A-wave velocity 138 cm/s Pressure half-time 99 ms Peak gradient, D 3 mm Hg Peak E/A ratio 0.6 Valve area, pressure half-time 2.22 cm^2 Tricuspid valve Regurgitant peak velocity 339 cm/s Peak RV-RA gradient, S 46 mm Hg Maximal regurgitant velocity 339 cm/s Systemic veins Estimated CVP 10 mm Hg Right ventricle RV pressure, S *56 mm Hg <30 LEGEND: Mean values are shown as u=mean value. Asterisk (*) pradhan values outside specified normal range. Prepared and signed by Baltazar Condon [id number]
[2016-10-13] MEDS: ONDANSETRON HCL 4 MG/2 ML VIAL IVP PRN (15:17)
--- NOTE | 2016-10-13 16:50 | HHI.PR ---
Subjective Remarks Patient feeling tired today she is wheezing significantly, will start Solu- Medrol No fever or chills, no chest pain Objective Vitals Vital Signs Date Time Temp Pulse Resp B/P Pulse Ox O2 Delivery O2 Flow Rate FiO2 10/13/16 12:00 97.2 78 18 101/54 93 10/13/16 08:00 98.0 94 19 139/67 92 10/13/16 07:49 93 10/13/16 04:00 98.6 92 20 142/96 93 10/13/16 00:00 99.1 101 20 181/84 93 10/12/16 20:12 93 10/12/16 20:00 91 10/12/16 20:00 99.6 90 20 146/81 93 10/12/16 20:00 99.6 90 20 146/81 93 I/O 10/12/16 10/12/16 10/12/16 10/13/16 10/13/16 10/13/16 07:00 15:00 23:00 07:00 15:00 23:00 Intake Total 1320 ml 960 ml 192 ml 120 ml Output Total 650 ml Balance 1320 ml 310 ml 192 ml 120 ml Intake Oral 120 ml 960 ml 60 ml 120 ml IV Total 1200 ml 0 ml 132 ml Output Urine Total 650 ml # Voids 1 1 # Bowel Movements 2 0 Result Diagram: 10/13/1635 10/13/16 0735 Objective Remarks GENERAL: This is a pleasant 86 years old elderly female, well-developed patient , in no apparent distress. SKIN: No rashes, warm and dry HEAD: Atraumatic. Normocephalic. EYES: Pupils equal round and reactive. Extraocular motions intact. No scleral icterus. ENT: Nose without bleeding, or drainage, Airway patent. NECK: Trachea midline. Supple CARDIOVASCULAR: Regular rate and rhythm without murmurs, gallops, or rubs. RESPIRATORY: Scattered bilateral wheezing GASTROINTESTINAL: Abdomen soft, non-tender, nondistended. Positive bowel sounds MUSCULOSKELETAL: Extremities without clubbing, cyanosis, or edema. Pedal pulses appreciated NEUROLOGICAL: Awake and alert. Moves all extremity. Normal speech.no focal neurological deficit A/P Problem List: (1) UTI (urinary tract infection) ICD Code: N39.0 Status: Acute (2) Pneumonia ICD Code: J18.9 Status: Acute (3) Accelerated hypertension ICD Code: I10 Status: Acute (4) Dyspnea ICD Code: R06.00 Status: Acute Assessment and Plan 10/12/16: Discussed with the patient and the daughter, continue antibiotic Rocephin and Zithromax,. due to increased BNP and history of leg swelling on and off by the daughter will check for underlying CHF with 2-D echo 10/13/16: Continue antibiotic, add Solu-Medrol, awaiting 2-D echo, BMP dropped from 290 - 130, creatinine dropped from 1.7-1.2 86-year-old female with RLL Community-acquired pneumonia: CTA with finding of RLL consolidation, continue Rocephin and azithromycin . Keep oxygen saturation above 92% and continue with DuoNeb when necessary Dyspnea: Chest x-ray noted and reviewed with finding of right lower lung consolidation however without any pulmonary congestion. Treat for pneumonia and continue DuoNeb when necessary and maintain oxygen saturation above 92% increase BNP and history of occasional leg swelling 2-D echo as above UTI: Continue Rocephin pending urine culture Accelerated hypertension: Still not optimized added Norvasc and clonidine, lisinopril and if creatinine improved and continue Lopressor and hydralazine when necessary Mild ROLF on CKD: Creatinine baseline around 1.5, it's 1.7 now, Continue with gentle IV fluid hydration and monitor BUN and creatinine Anxiety/depression: Continue outpatient medication Leukocytosis: Resolved DVT prophylaxis: Bilateral SCDs Florence White MD Oct 13, 2016 16:50
[2016-10-13] MEDS: traMADol HCL 50 MG TAB PO PRN (21:39)
[2016-10-14] VITALS (9 sets, daily range): BP systolic 137–165; BP diastolic 63–98; PULSE 82–95; RESP 16–22; TEMP 95.8–97.7; O2SAT 93–97
[2016-10-14] MEDS: SODIUM CHLORIDE 0.9% FLUSH 5 ML FLUSH IVF PRN (01:06)
[2016-10-14] MEDS: cefTRIAXone INJ 1,000 MG in SODIUM CHLORIDE 0.9% INJ 100 ML IV SCH (01:06)
[2016-10-14] MEDS: hydrALAZINE HCL 25 MG TAB PO PRN (01:39)
[2016-10-14] MEDS: RESP: ALBUTEROL 2.5 MG/3 ML NEB (PRN) NEB (02:51)
[2016-10-14] MEDS: RESP: ALBUTEROL 2.5 MG/IPRATROPIUM 0.5 MG NEB (SCH) NEB ×3 (07:58→20:16)
[2016-10-14] MEDS: SODIUM CHLORIDE 0.9% FLUSH 5 ML FLUSH IVF SCH ×2 (09:00→20:23)
[2016-10-14] MEDS: HEPARIN SODIUM - SQ 10,000 UNITS/ML VIAL SQ SCH ×2 (09:00→20:23)
[2016-10-14] MEDS: METOPROLOL SUCCINATE 25 MG EXTENDED RELEASE TAB PO SCH ×2 (09:00→20:23)
[2016-10-14] MEDS: amLODIPine BESYLATE 5 MG TAB PO SCH (10:11)
[2016-10-14] MEDS: AZITHROMYCIN 250 MG TAB PO SCH (10:11)
[2016-10-14] MEDS: CITALOPRAM HYDROBROMIDE 40 MG TAB PO SCH (10:11)
[2016-10-14] MEDS: PANTOPRAZOLE SOD 20 MG DELAYED RELEASE TAB PO SCH (10:12)
[2016-10-14] MEDS: LISINOPRIL 5 MG TAB PO SCH (10:12)
[2016-10-14] MEDS: LORazepam 0.5 MG TAB PO PRN ×2 (10:12→20:23)
[2016-10-14] MEDS: ACETAMINOPHEN 325 MG TAB PO PRN (10:49)
[2016-10-14] MEDS: ONDANSETRON HCL 4 MG/2 ML VIAL IVP PRN (10:49)
--- NOTE | 2016-10-14 12:11 | HHI.PR ---
Subjective Remarks Patient laying in bed she looks fatigued she is very poor historian When I asked her how you feel she asked me back "how do you seeing him doing " With further questioning she tells me that her breathing is not good as well as her shoulder pain and feeling tired and fatigued She is significantly wheezing, she told me she was around smokers during her life, but she never smoked herself 2-D echo done today showed 55% EF but arterial pulmonary pressure is 56 We will continue antibiotic, DuoNeb, Solu-Medrol, I will consult pulmonology for worsening respiratory symptoms plus workup for pulmonary hypertension Objective Vitals Vital Signs Date Time Temp Pulse Resp B/P Pulse Ox O2 Delivery O2 Flow Rate FiO2 10/14/16 08:00 97.7 82 20 148/75 96 10/14/16 07:55 95 21 10/14/16 04:00 97.2 95 18 154/73 97 10/14/16 00:00 97.7 88 16 162/98 96 10/13/16 20:00 97.7 90 16 155/69 96 10/13/16 19:52 92 21 10/13/16 19:45 82 10/13/16 16:00 96.3 72 17 123/62 92 I/O 10/13/16 10/13/16 10/13/16 10/14/16 10/14/16 10/14/16 07:00 15:00 23:00 07:00 15:00 23:00 Intake Total 192 ml 120 ml 1090 ml 147 ml Balance 192 ml 120 ml 1090 ml 147 ml Intake Oral 60 ml 120 ml 1090 ml IV Total 132 ml 0 ml 147 ml # Voids 1 10 # Bowel Movements 0 3 Result Diagram: 10/13/16 0735 10/13/16 0735 Objective Remarks GENERAL: This is a pleasant 86 years old elderly female, well-developed patient , in no apparent distress. SKIN: No rashes, warm and dry HEAD: Atraumatic. Normocephalic. EYES: Pupils equal round and reactive. Extraocular motions intact. No scleral icterus. ENT: Nose without bleeding, or drainage, Airway patent. NECK: Trachea midline. Supple CARDIOVASCULAR: Regular rate and rhythm without murmurs, gallops, or rubs. RESPIRATORY: significant wheezing bilaterally GASTROINTESTINAL: Abdomen soft, non-tender, nondistended. Positive bowel sounds MUSCULOSKELETAL: Extremities without clubbing, cyanosis, or edema. Pedal pulses appreciated NEUROLOGICAL: Awake and alert. Moves all extremity. Normal speech.no focal neurological deficit A/P Problem List: (1) UTI (urinary tract infection) ICD Code: N39.0 Status: Acute (2) Pneumonia ICD Code: J18.9 Status: Acute (3) Accelerated hypertension ICD Code: I10 Status: Acute (4) Dyspnea ICD Code: R06.00 Status: Acute Assessment and Plan 10/12/16: Discussed with the patient and the daughter, continue antibiotic Rocephin and Zithromax,. due to increased BNP and history of leg swelling on and off by the daughter will check for underlying CHF with 2-D echo 10/13/16: Continue antibiotic, add Solu-Medrol, awaiting 2-D echo, BMP dropped from 290 - 130, creatinine dropped from 1.7-1.2 10/14/16:She is significantly wheezing, negative smoker 2-D echo done today showed 55% EF but arterial pulmonary pressure is 56 We will continue antibiotic, DuoNeb, Solu-Medrol, I will consult pulmonology for worsening respiratory symptoms plus workup for pulmonary hypertension Check CBC BMP BMP in a.m. A/P: 86-year-old female with RLL Community-acquired pneumonia: CTA with finding of RLL consolidation, continue Rocephin and azithromycin . Keep oxygen saturation above 92% and continue with DuoNeb when necessary Dyspnea: Chest x-ray noted and reviewed with finding of right lower lung consolidation however without any pulmonary congestion. Treat for pneumonia and continue DuoNeb when necessary and maintain oxygen saturation above 92% increase BNP and history of occasional leg swelling 2-D echo as above UTI: Continue Rocephin pending urine culture Accelerated hypertension: Still not optimized added Norvasc and clonidine, lisinopril and if creatinine improved and continue Lopressor and hydralazine when necessary Mild ROLF on CKD: Creatinine baseline around 1.5, it's 1.7 now, Continue with gentle IV fluid hydration and monitor BUN and creatinine Anxiety/depression: Continue outpatient medication Leukocytosis: Resolved DVT prophylaxis: Bilateral SCDs Florence White MD Oct 14, 2016 12:11
[2016-10-14] MEDS ORDERED: RESP: ALBUTEROL 2.5 MG/IPRATROPIUM 0.5 MG NEB (PRN) NEB (15:00)
[2016-10-14] MEDS: methylPREDNISolone SOD SUCC 40 MG/1 ML VIAL IV PUSH SCH ×2 (16:32→20:23)
--- NOTE | 2016-10-14 19:51 | MB ---
cc: ROSY NOVA DATE OF CONSULTATION 10/14/[address] White REASON FOR CONSULTATION Evaluation for shortness of breath and pulmonary hypertension. HISTORY OF PRESENT ILLNESS Ms. Choe is a pleasant 86-year-old white female who has history of CA of the lung status post resection of the right lower lobe done by Dr. Beckwith in 2008. The patient is following with Dr. Velazquez. She came to the hospital with one week history of feeling short of breath. She has some wheezing, cough. No sputum production. No fever. She has no night sweats or chest pain. She denies any known COPD or asthma. With these symptoms she came to the hospital. She had a work-up done. She had a CTA of the chest done which shows no PE. It shows right lower lobe pneumonia. Her CBC showed WBC count 8.4, hemoglobin 11.2, hematocrit 34.8, MCV 87, platelet count 214. Sodium 140, potassium 4.0, chloride 104, CO2 26, BUN 19, creatinine 1.20. Blood gas ph 7.38, PCO2 39, PO2 67, bicarb 22, saturation 90%. She had echocardiogram done which shows her ejection fraction is 50 to 55% and RVSP is 56. PAST MEDICAL HISTORY Her past medical history is significant for history of CA of the lung, status post right lower lobectomy. History of inflammatory arthritis, episode of atrial fibrillation, anxiety, depression, GERD and hypertension. Also history of cholecystectomy and hysterectomy. MEDICATIONS She is currently takin. Solu-Medrol 40 milligrams q. 6 hours. 2. Albuterol/Atrovent nebulizer treatment. 3. Lisinopril 2.5 milligrams a day. 4. Amlodipine 5 milligrams a day. 5. Zithromax 500 milligrams a day. 6. Protonix 20 milligrams a day. 7. Rocephin 1 gram a day. 8. Metoprolol 25 milligrams twice a day. ALLERGIES SHE IS ALLERGIC TO PENTAZOCINE, SCOPOLAMINE, SULFA, TALWIN, TRIMETHOPRIM AND DEMEROL. SOCIAL HISTORY She is a , worked as a beautician. No history of smoking or alcohol use. FAMILY HISTORY She had four children, two with lung cancer. REVIEW OF SYSTEMS She lives alone. Walks only short distance inside the trailer house. No congestive heart failure. No DVT or pulmonary embolism. She has inflammatory arthritis. Does not need any oxygen. PHYSICAL EXAMINATION GENERAL: Pleasant, elderly female. Mild short of breath. VITAL SIGNS: Blood pressure 137/63, heart rate 84, respirations 22, temperature 97.6. HEENT: Pupils are equal and reactive to light. She has bilateral cataract surgery done. Oral mucosa, nasal mucosa normal. NECK: Supple. JVP not raised. CHEST: Bilaterally diffused expiratory rhonchi. CARDIOVASCULAR: S1, S2 normal. ABDOMEN: Benign. EXTREMITIES: She has nonpitting edema. CENTRAL NERVOUS SYSTEM: She is alert and oriented x 3. No focal deficit. IMPRESSION Acute bronchospasm. She does not have any history of any smoking, possible infection induced inflammatory disease. Right lower lobe infiltrate. CA of the lung status post right lower lobectomy. Pulmonary hypertension. Hypoxia. PLAN Will supplement her oxygen. Give her antibiotics, IV Solu-Medrol, aerosol treatment. Probably her pulmonary hypertension may be related to her underlying hypoxia or possibility of underlying inflammatory disease. Once she is better will check her pulmonary function study. Further treatment will depend on the course in the hospital. I discussed patient's condition with her daughter and son-in-law at the bedside. Thank you Dr. White for this consult. MD TOM Pierre/PATTI /7:18 PM /7:25 PM EJ
[2016-10-14] MEDS: traMADol HCL 50 MG TAB PO PRN (20:32)
[2016-10-15] VITALS (9 sets, daily range): BP systolic 119–173; BP diastolic 60–94; PULSE 79–96; RESP 15–21; TEMP 95.6–97.7; O2SAT 92–95
[2016-10-15] MEDS: SODIUM CHLORIDE 0.9% FLUSH 5 ML FLUSH IVF PRN (02:45)
[2016-10-15] MEDS: methylPREDNISolone SOD SUCC 40 MG/1 ML VIAL IV PUSH SCH ×4 (02:45→20:42)
[2016-10-15] MEDS: cefTRIAXone INJ 1,000 MG in SODIUM CHLORIDE 0.9% INJ 100 ML IV SCH (02:45)
[2016-10-15 06:45] LABS: BASOPHIL # 0.1 TH/MM3 (0-0.2); BASOPHIL % 0.9 % (0.0-2.0); EOSINOPHIL % 0.1 % (0.0-4.0); HEMO FLAGS DIFF FINAL; LYMPH % 10.2 % (9.0-44.0); LYMPHOCYTE # 0.6 TH/MM3 (1.0-4.8); MEAN CELL VOLUME 86.4 FL (80.0-100.0); MEAN CORPUSCULAR HEMOGLOBIN 29.1 PG (27.0-34.0); MEAN CORPUSCULAR HGB CONC 33.7 % (32.0-36.0); MONO % 1.5 % (0.0-8.0); NEUT % 87.3 % (16.0-70.0); PLATELET COUNT 277 TH/MM3 (150-450); RED BLOOD COUNT 4.17 MIL/MM3 (4.00-5.30); RED CELL DISTRIBUTION WIDTH 14.1 % (11.6-17.2); WHITE BLOOD COUNT 5.8 TH/MM3 (4.0-11.0)
[2016-10-15 06:48] LABS: POTASSIUM 4.5 MEQ/L (3.5-5.1)
[2016-10-15 06:51] LABS: BICARBONATE 25.1 MEQ/L (21.0-32.0)
[2016-10-15] MEDS: RESP: ALBUTEROL 2.5 MG/IPRATROPIUM 0.5 MG NEB (SCH) NEB ×4 (07:34→19:34)
[2016-10-15] MEDS: ACETAMINOPHEN 325 MG TAB PO PRN (09:48)
[2016-10-15] MEDS: ONDANSETRON HCL 4 MG/2 ML VIAL IVP PRN (09:48)
[2016-10-15] MEDS: METOPROLOL SUCCINATE 25 MG EXTENDED RELEASE TAB PO SCH ×2 (09:49→20:43)
[2016-10-15] MEDS: LISINOPRIL 5 MG TAB PO SCH (09:49)
[2016-10-15] MEDS: LORazepam 0.5 MG TAB PO PRN ×2 (09:49→18:51)
[2016-10-15] MEDS: amLODIPine BESYLATE 5 MG TAB PO SCH (09:49)
[2016-10-15] MEDS: PANTOPRAZOLE SOD 20 MG DELAYED RELEASE TAB PO SCH (09:49)
[2016-10-15] MEDS: CITALOPRAM HYDROBROMIDE 40 MG TAB PO SCH (09:49)
[2016-10-15] MEDS: AZITHROMYCIN 250 MG TAB PO SCH (09:49)
[2016-10-15] MEDS: HEPARIN SODIUM - SQ 10,000 UNITS/ML VIAL SQ SCH ×2 (09:50→20:43)
[2016-10-15] MEDS: SODIUM CHLORIDE 0.9% FLUSH 5 ML FLUSH IVF SCH ×2 (09:50→20:43)
--- NOTE | 2016-10-15 12:59 | HHI.PR ---
Subjective Remarks Patient still wheezing significantly, on O2 nasal cannula She was afebrile, looks fatigued and debilitated due to the dyspnea In by pupil personnel services director yesterday, bronchospasm workup ongoing Objective Vitals Vital Signs Date Time Temp Pulse Resp B/P Pulse Ox O2 Delivery O2 Flow Rate FiO2 10/15/16 12:39 97.1 91 15 127/62 92 10/15/16 08:26 96.6 88 18 146/77 94 10/15/16 07:35 92 21 10/15/16 04:00 95.6 80 18 173/94 94 10/15/16 00:41 97.7 79 21 125/64 93 10/14/16 21:16 95.8 92 22 165/95 95 10/14/16 20:16 93 21 10/14/16 20:00 86 10/14/16 16:00 97.6 84 20 137/63 94 I/O 10/14/16 10/14/16 10/14/16 10/15/16 10/15/16 10/15/16 07:00 15:00 23:00 07:00 15:00 23:00 Intake Total 147 ml 725 ml 115 ml Balance 147 ml 725 ml 115 ml Intake Oral 725 ml IV Total 147 ml 115 ml # Voids 2 5 # Bowel Movements 1 0 Result Diagram: 10/15/1661610/15/16616 Objective Remarks GENERAL: This is a pleasant 86 years old elderly female, well-developed patient , in no apparent distress. SKIN: No rashes, warm and dry HEAD: Atraumatic. Normocephalic. EYES: Pupils equal round and reactive. Extraocular motions intact. No scleral icterus. ENT: Nose without bleeding, or drainage, Airway patent. NECK: Trachea midline. Supple CARDIOVASCULAR: Regular rate and rhythm without murmurs, gallops, or rubs. RESPIRATORY: Scattered bilateral wheezing GASTROINTESTINAL: Abdomen soft, non-tender, nondistended. Positive bowel sounds MUSCULOSKELETAL: Extremities without clubbing, cyanosis, or edema. Pedal pulses appreciated NEUROLOGICAL: Awake and alert. Moves all extremity. Normal speech.no focal neurological deficit A/P Problem List: (1) UTI (urinary tract infection) ICD Code: N39.0 Status: Acute (2) Pneumonia ICD Code: J18.9 Status: Acute (3) Accelerated hypertension ICD Code: I10 Status: Acute (4) Dyspnea ICD Code: R06.00 Status: Acute Assessment and Plan 10/12/16: Discussed with the patient and the daughter, continue antibiotic Rocephin and Zithromax,. due to increased BNP and history of leg swelling on and off by the daughter will check for underlying CHF with 2-D echo 10/13/16: Continue antibiotic, add Solu-Medrol, awaiting 2-D echo, BMP dropped from 290 - 130, creatinine dropped from 1.7-1.2 10/14/16:She is significantly wheezing, negative smoker 2-D echo done today showed 55% EF but arterial pulmonary pressure is 56 We will continue antibiotic, DuoNeb, Solu-Medrol, I will consult pulmonology for worsening respiratory symptoms plus workup for pulmonary hypertension Check CBC BMP BMP in a.m. 10/15/16: Still wheezing significantly, patient seen by a pupil personnel services director appreciate their input, recommending continuing current treatment for her bronchospasm A/P: 86-year-old female with RLL Community-acquired pneumonia: CTA with finding of RLL consolidation, continue Rocephin and azithromycin . Keep oxygen saturation above 92% and continue with DuoNeb when necessary Dyspnea and bronchospasm: Chest x-ray noted and reviewed with finding of right lower lung consolidation however without any pulmonary congestion. Treat for pneumonia and continue DuoNeb when necessary and maintain oxygen saturation above 92% increase BNP and history of occasional leg swelling 2-D echo as above Pulmonary consulted, recommended PFT when she stabilized and further workup to decide the reason for the bronchospasm UTI: Continue Rocephin pending urine culture Accelerated hypertension: Still not optimized added Norvasc and clonidine, lisinopril and if creatinine improved and continue Lopressor and hydralazine when necessary Mild ROLF on CKD: Creatinine baseline around 1.5, it's 1.7 now, Continue with gentle IV fluid hydration and monitor BUN and creatinine Anxiety/depression: Continue outpatient medication Leukocytosis: Resolved DVT prophylaxis: Bilateral SCDs Florence White MD Oct 15, 2016 12:59
--- NOTE | 2016-10-15 17:24 | HHI.PR ---
Subjective Remarks 86 YOWF with Pn, wheezing Feels better Wheezing improving no fever Objective Vital Signs Vital Signs Date Time Temp Pulse Resp B/P Pulse Ox O2 Delivery O2 Flow Rate FiO2 10/15/16 17:18 96.7 90 16 130/71 95 10/15/16 12:39 97.1 91 15 127/62 92 10/15/16 08:26 96.6 88 18 146/77 94 10/15/16 07:35 92 21 10/15/16 04:00 95.6 80 18 173/94 94 10/15/16 00:41 97.7 79 21 125/64 93 10/14/16 21:16 95.8 92 22 165/95 95 10/14/16 20:16 93 21 10/14/16 20:00 86 I/O 10/14/16 10/14/16 10/14/16 10/15/16 10/15/16 10/15/16 07:00 15:00 23:00 07:00 15:00 23:00 Intake Total 147 ml 725 ml 115 ml Balance 147 ml 725 ml 115 ml Intake Oral 725 ml IV Total 147 ml 115 ml # Voids 2 5 # Bowel Movements 1 0 Result Diagram: 10/15/1617 10/15/1617 Objective Remarks GENERAL: Elderly Wf, mild sob SKIN: Warm and dry. HEAD: Normocephalic. EYES: No scleral icterus. No injection or drainage. NECK: Supple, trachea midline. No JVD or lymphadenopathy. CARDIOVASCULAR: Regular rate and rhythm without murmurs, gallops, or rubs. RESPIRATORY: Breath sounds equal bilaterally. No accessory muscle use. Exp rhonchi GASTROINTESTINAL: Abdomen soft, non-tender, nondistended. MUSCULOSKELETAL: No cyanosis, or edema. BACK: Nontender without obvious deformity. No CVA tenderness. A/P Assessment and Plan Acute Bronchospasm Pneumonia ca lung, s/p resection PHTN Hypoxia PLAN: IV Solumedrol cont Abx Supplement 02 PFT when better Michael Xiao MD Oct 15, 2016 17:24
[2016-10-15] MEDS: traMADol HCL 50 MG TAB PO PRN (18:51)
[2016-10-16] VITALS (10 sets, daily range): BP systolic 131–163; BP diastolic 55–83; PULSE 61–91; RESP 18–22; TEMP 96.1–98.2; O2SAT 76–96
[2016-10-16] MEDS: cefTRIAXone INJ 1,000 MG in SODIUM CHLORIDE 0.9% INJ 100 ML IV SCH (02:52)
[2016-10-16] MEDS: methylPREDNISolone SOD SUCC 40 MG/1 ML VIAL IV PUSH SCH (02:52)
[2016-10-16] MEDS: RESP: ALBUTEROL 2.5 MG/IPRATROPIUM 0.5 MG NEB (SCH) NEB ×4 (07:33→20:16)
[2016-10-16] MEDS: LISINOPRIL 5 MG TAB PO SCH (08:59)
[2016-10-16] MEDS: amLODIPine BESYLATE 5 MG TAB PO SCH (08:59)
[2016-10-16] MEDS: METOPROLOL SUCCINATE 25 MG EXTENDED RELEASE TAB PO SCH ×2 (09:00→21:05)
[2016-10-16] MEDS: CITALOPRAM HYDROBROMIDE 40 MG TAB PO SCH (09:00)
[2016-10-16] MEDS: PANTOPRAZOLE SOD 20 MG DELAYED RELEASE TAB PO SCH (09:01)
[2016-10-16] MEDS: CEFUROXIME AXETIL 500 MG TAB PO SCH ×2 (09:01→21:06)
[2016-10-16] MEDS: predniSONE 20 MG TAB PO SCH ×2 (09:01→21:05)
[2016-10-16] MEDS: HEPARIN SODIUM - SQ 10,000 UNITS/ML VIAL SQ SCH ×2 (09:02→21:07)
[2016-10-16] MEDS: SODIUM CHLORIDE 0.9% FLUSH 5 ML FLUSH IVF SCH ×2 (09:04→21:06)
[2016-10-16] MEDS: LORazepam 0.5 MG TAB PO PRN ×2 (09:04→21:05)
--- NOTE | 2016-10-16 09:52 | HHI.PR ---
Addendum to Inpatient Note Additional Information Patient primary care physician came back after weekend and took over , we will transfer attending Florence White MD Oct 16, 2016 09:52
[2016-10-16] MEDS: ACETAMINOPHEN 325 MG TAB PO PRN (12:12)
--- NOTE | 2016-10-16 18:15 | HHI.FPPN ---
Subjective Remarks Feels much better than admit. Still some wheezing and cough but better. HAs been able to have BM and urinate. Working with PT. Feeling better about going home. Still on IV antibiotics and IV steroids. Feels like she just starting improving since pulmonary started the steroids. No fever. Eating well. Objective Vitals Vital Signs Date Time Temp Pulse Resp B/P Pulse Ox O2 Delivery O2 Flow Rate FiO2 10/16/16 16:00 98.0 90 18 133/55 94 10/16/16 12:00 97.4 87 20 142/75 76 10/16/16 08:00 96.1 88 22 155/74 92 10/16/16 07:40 61 10/16/16 07:34 93 21 10/16/16 06:42 96.9 90 18 163/83 95 10/16/16 01:16 98.1 87 20 142/78 94 10/15/16 20:58 97.6 93 18 119/60 93 10/15/16 19:45 96 10/15/16 19:38 93 21 I/O 10/15/16 10/15/16 10/15/16 10/16/16 10/16/16 10/16/16 07:00 15:00 23:00 07:00 15:00 23:00 Intake Total 115 ml 1000 ml 110 ml 480 ml Balance 115 ml 1000 ml 110 ml 480 ml Intake Oral 1000 ml 480 ml IV Total 115 ml 110 ml # Voids 5 3 1 # Bowel Movements 0 0 Result Diagram: 10/15/1661610/15/16 0617 Objective Remarks Gen: overweight WF, sitting up in bed, no distress, speaking well, some hoarseness CV: RRR, no murmur Lungs: mild end inspiratory wheezing bilaterally, no rhonchi, good air movement Abd: soft, obese, NT Ext: thick LE but no edema to the feet, 2+ pulses, legs generally tender to touch as per her baseline, negative Homans Urinary Catheter: No Vascular Central Line Catheter: No A/P Discharge Planning Plan to discharge to home tomorrow if doing well on oral meds. Problem List: (1) Pneumonia Status: Acute Plan: She is feeling better since Rocephin, zithromax and steroids. Stop the zithromax as she has completed 5 days. Change rocephin to ceftin PO and change IV steroids to PO. If she continues to do well tomorrow will discharge home on taper of steroids and completing 10 days of antibiotics. Not needing oxygen at this time. Encourage activity. On admission she had fever, and pneumonia on CT with dyspnea but no tachycardia, elevated WBC or bandemia. Blood cultures returned negative. Urine culture was also negative and suspect initial findings were contaminent. (2) Dyspnea Status: Acute Plan: Due to the pneumonia, weight, deconditioning. Overall improving. Continue with PT. (3) Accelerated hypertension Status: Resolved Plan: BPs still slightly elevated but tolerated, continue same meds. Likely increased with illness and steroid use. (4) Restless leg syndrome Status: Chronic Plan: she normally uses requip prior to bed or as needed when resting during the day. Reordered for her today. (5) Depression Status: Chronic Plan: She is better than she has been in the past but it is a chronic issue. Continue current meds, support with family and encourage interaction with others and PT. (6) Pulmonary hypertension Status: Acute Plan: Increased pulmonary artery pressures on ECHO. Currently seeing fuel oil clerk. Weight loss would be beneficial, however she has remained relatively stable over years despite attempts to improve. I dont' think significant weight loss is a likelyhood. Will need to reevaluate after pneumonia cleared. 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
--- NOTE | 2016-10-16 20:10 | HHI.PR ---
Subjective Remarks 86 YOWF with Pn, wheezing Feels better Wheezing improving no fever Occ cough Objective Vital Signs Vital Signs Date Time Temp Pulse Resp B/P Pulse Ox O2 Delivery O2 Flow Rate FiO2 10/16/16 16:00 98.0 90 18 133/55 94 10/16/16 12:00 97.4 87 20 142/75 76 10/16/16 08:00 96.1 88 22 155/74 92 10/16/16 07:40 61 10/16/16 07:34 93 21 10/16/16 06:42 96.9 90 18 163/83 95 10/16/16 01:16 98.1 87 20 142/78 94 10/15/16 20:58 97.6 93 18 119/60 93 I/O 10/15/16 10/15/16 10/15/16 10/16/16 10/16/16 10/16/16 07:00 15:00 23:00 07:00 15:00 23:00 Intake Total 115 ml 1000 ml 110 ml 480 ml Balance 115 ml 1000 ml 110 ml 480 ml Intake Oral 1000 ml 480 ml IV Total 115 ml 110 ml # Voids 5 3 1 # Bowel Movements 0 0 Result Diagram: 10/15/1661610/15/16 0617 Objective Remarks GENERAL: Elderly Wf, mild sob SKIN: Warm and dry. HEAD: Normocephalic. EYES: No scleral icterus. No injection or drainage. NECK: Supple, trachea midline. No JVD or lymphadenopathy. CARDIOVASCULAR: Regular rate and rhythm without murmurs, gallops, or rubs. RESPIRATORY: Breath sounds equal bilaterally. No accessory muscle use. Exp rhonchi GASTROINTESTINAL: Abdomen soft, non-tender, nondistended. MUSCULOSKELETAL: No cyanosis, or edema. BACK: Nontender without obvious deformity. No CVA tenderness. A/P Assessment and Plan Acute Bronchospasm Pneumonia ca lung, s/p resection PHTN Hypoxia PLAN: DC Solumedrol PO Steroids cont Abx Supplement 02 PFT in Michael Hernandez MD Oct 16, 2016 20:09
[2016-10-16] MEDS: traMADol HCL 50 MG TAB PO PRN (21:06)
[2016-10-17] VITALS: BP 157/83; PULSE 91; RESP 18; TEMP 96.3; O2SAT 96
[2016-10-17 04:00] VITALS: BP 157/81; PULSE 84; RESP 18; TEMP 96.6; O2SAT 96
[2016-10-17] MEDS ORDERED: PRED20 PO (07:39)
[2016-10-17] MEDS ORDERED: ULTR50TA5 PO (07:39)
[2016-10-17] MEDS ORDERED: LISI-519 PO (07:39)
[2016-10-17] MEDS: RESP: ALBUTEROL 2.5 MG/IPRATROPIUM 0.5 MG NEB (SCH) NEB ×2 (07:39→12:00)
[2016-10-17] MEDS ORDERED: ROPI.25 PO (07:39)
[2016-10-17] MEDS ORDERED: CEFT500T3 PO (07:39)
[2016-10-17 07:41] VITALS: O2SAT 97
[2016-10-17 08:00] VITALS: BP 167/74; PULSE 80; RESP 20; TEMP 97.3; O2SAT 95
[2016-10-17 08:40] VITALS: PULSE 76
[2016-10-17] MEDS: predniSONE 20 MG TAB PO SCH (08:43)
[2016-10-17] MEDS: LORazepam 0.5 MG TAB PO PRN (08:43)
[2016-10-17] MEDS: PANTOPRAZOLE SOD 20 MG DELAYED RELEASE TAB PO SCH (08:43)
[2016-10-17] MEDS: amLODIPine BESYLATE 5 MG TAB PO SCH (08:43)
[2016-10-17] MEDS: LISINOPRIL 5 MG TAB PO SCH (08:43)
[2016-10-17] MEDS: CITALOPRAM HYDROBROMIDE 40 MG TAB PO SCH (08:44)
[2016-10-17] MEDS: SODIUM CHLORIDE 0.9% FLUSH 5 ML FLUSH IVF SCH (08:44)
[2016-10-17] MEDS: METOPROLOL SUCCINATE 25 MG EXTENDED RELEASE TAB PO SCH (08:44)
[2016-10-17] MEDS: CEFUROXIME AXETIL 500 MG TAB PO SCH (08:44)
[2016-10-17] MEDS: HEPARIN SODIUM - SQ 10,000 UNITS/ML VIAL SQ SCH (08:45)
[2016-10-17] MEDS: SENNOSIDES 8.6 MG TAB PO PRN (08:48)
[2016-10-17] MEDS: traMADol HCL 50 MG TAB PO PRN (09:43)
--- NOTE | 2016-10-17 11:47 | HHI.FF ---
Face to Face Verification Diagnosis: (1) Pneumonia (2) Pulmonary hypertension Physical Therapy Order: Evaluate and Treat, Improve ambulation, Strength and gait training Home Health Nursing Order: Signs/symptoms of disease process Nursing assessment with vital signs Home Health Aide Order: To Assist In: Bathing and personal care Instructions: She has aide already hired I have seen patient Madina Choe on 10/17/16. My clinical findings support the need for the requested home health care services because: Patient has SOB Deconditioned w/ increased weakness Need for psychosocial assistance High risk of falls I certify that my clinical findings support that this patient is homebound because: Unsteady gait/balance Recent pneumonia with hospitalization and shortness of breath Massiel Jenkins MD Oct 17, 2016 11:47
--- NOTE | 2016-10-17 11:51 | HHI.DS ---
Discharge Summary Admission Date Oct 10, 2016 at 02:19 Discharge Date: Oct 17, 2016 Admitting Diagnosis UTI; dyspnea; mild chf (1) Pneumonia Diagnosis: Principal Plan: She is feeling better since Rocephin, zithromax and steroids. Stop the zithromax as she has completed 5 days. Changed rocephin to ceftin PO and change IV steroids to PO on 10/16/16. Will discharge home on taper of steroids and completing 10 days of antibiotics. Not needing oxygen at this time. Encourage activity. On admission she had fever, and pneumonia on CT with dyspnea but no tachycardia, elevated WBC or bandemia. Blood cultures returned negative. Urine culture was also negative and suspect initial findings were contaminent. (2) Dyspnea Diagnosis: Principal Plan: Due to the pneumonia, weight, deconditioning. Overall improving. Continue with PT. She needs to have the PFTs completed prior to discharge today. (3) Accelerated hypertension Diagnosis: Secondary Plan: BPs still slightly elevated but tolerated, continue same meds. Likely increased with illness and steroid use. (4) Restless leg syndrome Diagnosis: Secondary Plan: she normally uses requip prior to bed or as needed when resting during the day. Reordered for her today. (5) Depression Diagnosis: Secondary Plan: She is better than she has been in the past but it is a chronic issue. Continue current meds, support with family and encourage interaction with others and PT. (6) Pulmonary hypertension Diagnosis: Secondary Plan: Increased pulmonary artery pressures on ECHO. Currently seeing tax clerk. Weight loss would be beneficial, however she has remained relatively stable over years despite attempts to improve. I dont' think significant weight loss is a likelyhood. Will need to reevaluate after pneumonia cleared. Consultants Dr. Xiao pulmonary Brief History 86 yo WF with increasing SOB, weakness, cough prior to admission. Found to have pneumonia after initial concern for CHF. No sign of CHF on w/u. CBC/BMP: 10/15/16 0617 10/15/16 0617 Significant Findings Laboratory Tests Test 10/15/16 06:17 Neutrophils (%) (Auto) 87.3 % (16.0-70.0) Lymphocytes # (Auto) 0.6 TH/MM3 (1.0-4.8) Blood Urea Nitrogen 23 MG/DL (7-18) Creatinine 1.10 MG/DL (0.50-1.00) Estimat Glomerular Filtration 47 ML/MIN (>89) Rate Random Glucose 146 MG/DL (74-106) Calcium Level 8.4 MG/DL (8.5-10.1) B-Type Natriuretic Peptide 257 PG/ML (0-100) PE at Discharge Gen: overweight WF, sitting up in bed, no distress, speaking well, some hoarseness CV: RRR, no murmur Lungs: mild end inspiratory wheezing bilaterally, no rhonchi, good air movement Abd: soft, obese, NT Ext: thick LE but no edema to the feet, 2+ pulses, legs generally tender to touch as per her baseline, negative [facility] Course Pt had slow improvement of her symptoms and finally had more significant improvement after addition of steroids. Wheezing improved to resolved at the time of discharge. She was walking with a walker. She continued to be emotionally dependent during the hospitalization and dissatisfied with the length of time to response of her requests. Discussed with patient's daughter, Cait, per her request prior to discharge regarding plans for medications, activity, home health and f/u appointments. Pt Condition on Discharge: Fair Discharge Disposition: Disch w/ Home Health Serv Discharge Instructions DIET: Follow Instructions for: Heart Healthy Diet Activities you can perform: Regular-No Restrictions Other Activity Instructions: Encouraged to use the walker at all times. Massiel Jenkins MD Oct 17, 2016 11:51
[2016-10-17 12:00] VITALS: BP 163/72; PULSE 79; RESP 20; TEMP 96.9; O2SAT 94
--- NOTE | 2016-10-24 12:01 | RSPPFT ---
DATE OF PROCEDURE: 10/17/16 COMMENTS: Spirometry shows FVC of 1.3 at 64% of predicted, FEV1 of 0.9 at 65%, FEV1/FVC ratio is normal. Flow is decreased at FEF 25, FEF 75 and FEF 25-75. There is no response after bronchodilator treatment. Flow volume loop indicates an obstructive pattern. IMPRESSION: 1. Mild obstructive lung disease. 2. No response after bronchodilator treatment. 3. Underlying restrictive disease is not ruled out from this study.
== END 2016-10-17 14:19 | disposition home health service (06) | DRG 194 ==
LOC: PHEFT 22:52 → PHEDA 10-10 02:19 → PHEDH 10-10 06:19 → PH3B 10-10 07:37
PROVIDERS: ADMIT Family Medicine; ATTEND Family Medicine
DX: J18.9 Pneumonia, unspecified organism (principal); N39.0 Urinary tract infection, site not specified; N17.9 Acute kidney failure, unspecified; I27.2 Other secondary pulmonary hypertension; Z90.2 Acquired absence of lung [part of]; Z68.41 Body mass index [BMI] 40.0-44.9, adult; E66.3 Overweight; I12.9 Hypertensive chronic kidney disease with stage 1 through stage 4 chronic kidney disease, or unspecified chronic kidney disease; N18.9 Chronic kidney disease, unspecified; F32.4 Major depressive disorder, single episode, in partial remission; F41.9 Anxiety disorder, unspecified; I25.10 Atherosclerotic heart disease of native coronary artery without angina pectoris; K21.9 Gastro-esophageal reflux disease without esophagitis; Z85.118 Personal history of other malignant neoplasm of bronchus and lung; Z96.1 Presence of intraocular lens; G25.81 Restless legs syndrome
CPT/HCPCS: 36600; 71010; 71275; 80048; 81001; 82550; 82805; 83605; 83880; 84484; 85025; 85379; 87040; 87086; 87804; 93005; 93306; 94060; 94640; 94664; 96374; 96375; J0360; J0456; J0696; J1644; J1940; J2405; J2920; J2930; J7030; J7050; J7512; J7613; Q9967

== ENCOUNTER → 2016-11-06 | Outpatient (CLI) | payer MEDICARE, OTHER ==
[~2016-11-06] MED LIST changes: +CEFT500T3 PO; +LISI-519 PO; +PRED20 PO; +ROPI.25 PO; +ULTR50TA5 PO; -ZOFR4TAB3 SL
[2016-11-06 16:53] LABS: AUTOMATED NEUTROPHIL # 5.8 TH/MM3 (1.8-7.7); BASOPHIL % 0.4 % (0.0-2.0); EOSINOPHIL # 0.1 TH/MM3 (0-0.4); EOSINOPHIL % 1.3 % (0.0-4.0); HEMATOCRIT 40.8 % (35.0-46.0); HEMO FLAGS DIFF FINAL; LYMPH % 21.6 % (9.0-44.0); LYMPHOCYTE # 1.9 TH/MM3 (1.0-4.8); MEAN CELL VOLUME 89.5 FL (80.0-100.0); MEAN CORPUSCULAR HEMOGLOBIN 28.3 PG (27.0-34.0); MEAN CORPUSCULAR HGB CONC 31.7 % (32.0-36.0); MONO % 9.1 % (0.0-8.0); NEUT % 67.6 % (16.0-70.0); PLATELET COUNT 248 TH/MM3 (150-450); RED BLOOD COUNT 4.56 MIL/MM3 (4.00-5.30); RED CELL DISTRIBUTION WIDTH 15.3 % (11.6-17.2); WHITE BLOOD COUNT 8.6 TH/MM3 (4.0-11.0)
[2016-11-06 17:03] LABS: BLOOD, URINE NEG (NEG); GLUCOSE,URINE NEG (NEG); HYALINE CAST, URINE 5 /lpf (RARE); KETONE, URINE NEG (NEG); MUCUS URINE FEW /lpf (OCC); NITRITE,URINE NEG (NEG); PH, URINE 5.5 (5.0-8.5); SQUAMOUS EPITHELIAL CELL URINE 12 /hpf (0-5); URINE COLOR YELLOW (YELLW/STRAW)
[2016-11-06 17:06] LABS: ALT (GPT) 30 U/L (10-53); ANION GAP 10 MEQ/L (5-15); AST (GOT) 16 U/L (15-37); BICARBONATE 25.1 MEQ/L (21.0-32.0); BLOOD UREA NITROGEN 22 MG/DL (7-18); CHLORIDE 106 MEQ/L (98-107); GLOMERULAR FILTRATION RATE 31 ML/MIN (>89); POTASSIUM 4.7 MEQ/L (3.5-5.1); SODIUM (NA) 141 MEQ/L (136-145)
[2016-11-06 17:15] LABS: ALKALINE PHOSPHATASE 88 U/L (45-117); TOTAL BILIRUBIN ADULT LESS THAN 0.1 MG/DL (0.2-1.0)
== END ==
LOC: PLAB 14:00
PROVIDERS: ATTEND Family Medicine
DX: R53.83 Other fatigue (principal); N18.3 Chronic kidney disease, stage 3 (moderate); N39.0 Urinary tract infection, site not specified
CPT/HCPCS: 36415; 80053; 81001; 84443; 85025; 87086